=== PATIENT | female | born 1960 | race Caucasian/White ===

== ENCOUNTER 2017-03-04 14:16 | Emergency (ER) | payer SELFPAY ==
--- NOTE | 2017-03-04 14:29 | PDOC ---
History of Present Illness <Jeison oCy - Last Filed: 03/04/17 14:29> - General History Source: Patient Exam Limitations: No Limitations - History of Present Illness Initial Comments: 03/04/17 15:17 The patient is a 56-year-old female with a significant past medical history of left renal cancer (diagnosed Feb 2016), and presents to the emergency department with abdominal pain and vomiting since 4am today. She reports she is s/p left radical nephrectomy for the CA but the CA has relapsed in the same region. She reports the pain is located in the right upper quadrant, and she vomited non-bloody fluid that she describes as liquidy and slightly green in appearance. She reports associated nausea, chills, and sweating. She states she took a shower after symptoms started and experienced an episode of presyncope when her vision was lost temporarily. She denies LOC, and states her vision is back to baseline upon interview. Patient is Urdu-speaking. The patient denies chest pain, shortness of breath, headache and dizziness. The patient denies fever, chills, diarrhea and constipation. The patient denies dysuria, frequency, urgency and hematuria. Allergies: NSAIDs Past Surgical History: left radical nephrectomy for CA, hysterectomy Social History: No toxic habits reported PCP: Dr. Beatrice Wilson Oncologist: Dr. Membreno <Cynthia Lynn - Last Filed: 03/04/17 17:39> <Roxanna Paul - Last Filed: 03/04/17 23:05> - General Chief Complaint: Nausea/Vomiting Stated Complaint: VOMITING Time Seen by Provider: 03/04/17 14:29 Past History <Jeison Coy - Last Filed: 03/04/17 14:29> <Cynthia Lynn - Last Filed: 03/04/17 17:39> <Roxanna Paul - Last Filed: 03/04/17 23:05> - Past Medical History Allergies/Adverse Reactions: Allergies Allergy/AdvReac Type Severity Reaction Status Date / Time NSAIDS (Non-Steroidal Allergy Severe tachycardia Verified 03/04/17 14:29 Anti-Inflamma Home Medications: Ambulatory Orders Lisinopril [Prinivil] 20 mg PO DAILY 03/04/17 Metformin HCl [Metformin HCl ER] 500 mg PO DAILY 03/04/17 Methimazole [Tapazole -] 10 mg PO DAILY 03/04/17 Review of Systems - Review of Systems Able to Perform ROS?: Yes Comments:: 03/04/17 15:17 GENERAL/CONSTITUTIONAL: (+) Diaphoresis. (+) chills. No fever. No weakness. HEAD, EYES, EARS, NOSE AND THROAT: No change in vision. No ear pain or discharge. No sore throat. CARDIOVASCULAR: No chest pain or shortness of breath. RESPIRATORY: No cough, wheezing, or hemoptysis. GASTROINTESTINAL: (+) abdominal pain, (+) nausea, (+) vomiting. No diarrhea or constipation. GENITOURINARY: No dysuria, frequency, or change in urination. MUSCULOSKELETAL: No joint or muscle swelling or pain. No neck or back pain. SKIN: No rash NEUROLOGIC: No headache, vertigo, loss of consciousness, or change in strength/ sensation. ENDOCRINE: No increased thirst. No abnormal weight change. HEMATOLOGIC/LYMPHATIC: No anemia, easy bleeding, or history of blood clots. ALLERGIC/IMMUNOLOGIC: No hives or skin allergy. <Cynthia Lynn - Last Filed: 03/04/17 17:39> *Physical Exam - Vital Signs Last Vital Signs Temp Pulse Resp BP Pulse Ox 97.8 F 88 20 119/83 99 03/04/17 14:20 03/04/17 14:20 03/04/17 14:20 03/04/17 14:20 03/04/17 14:20 - Physical Exam Comments: 03/04/17 15:18 GENERAL: Awake, alert, and fully oriented, in no acute distress HEAD: No signs of trauma EYES: PERRLA, EOMI, sclera anicteric, conjunctiva clear ENT: Auricles normal inspection, hearing grossly normal, nares patent, oropharynx clear without exudates. Moist mucosa NECK: Normal ROM, supple, no lymphadenopathy, JVD, or masses LUNGS: Breath sounds equal, clear to auscultation bilaterally. No wheezes, and no crackles HEART: Regular rate and rhythm, normal S1 and S2, no murmurs, rubs or gallops ABDOMEN: Soft, nontender, normoactive bowel sounds. No guarding, no rebound. No masses EXTREMITIES: Normal range of motion, no edema. No clubbing or cyanosis. No cords, erythema, or tenderness NEUROLOGICAL: Cranial nerves II through XII grossly intact. Normal speech, normal gait SKIN: Warm, Dry, normal turgor, no rashes or lesions noted. <Cynthia Lynn - Last Filed: 03/04/17 17:39> - Vital Signs Last Vital Signs Temp Pulse Resp BP Pulse Ox 97.8 F 78 18 126/74 96 03/04/17 14:20 03/04/17 19:54 03/04/17 19:54 03/04/17 19:54 03/04/17 19:54 <PaulRoxanna - Last Filed: 03/04/17 23:05> ED Treatment Course - LABORATORY CBC & Chemistry Diagram: 03/04/17 15:00 03/04/17 15:00 - ADDITIONAL ORDERS Additional order review: 03/04/17 15:00 RBC 4.72 MCV 76.2 L MCHC 32.3 RDW 17.0 H MPV 8.4 Neutrophils % 85.8 H Lymphocytes % 9.6 Monocytes % 4.1 Eosinophils % 0.3 Basophils % 0.2 - RADIOLOGY Radiograph Interpretation: 03/04/17 16:43 GALLBLADDER US IMPRESSION: Small right renal cyst Reported by: Dr. Gutierrez Reyez Reviewed by: Dr. Jeison Coy 03/04/17 17:39 CXR PORTABLE IMPRESSION: Cardiac silhouette is upper limits of normal in size. Reported by: Dr. Madonna Morris Reviewed: Dr. Jeison Coy <Emily Lynnnda - Last Filed: 03/04/17 17:39> - LABORATORY CBC & Chemistry Diagram: 03/04/17 15:00 03/04/17 15:00 - ADDITIONAL ORDERS Additional order review: Laboratory Results 03/04/17 03/04/17 03/04/17 19:19 15:00 15:00 INR 1.02 Sodium 138 Potassium 4.4 Chloride 105 Carbon Dioxide 24 Anion Gap 9 BUN 23 H Creatinine 1.2 H Creat Clearance w eGFR 46.14 Random Glucose 124 H Calcium 8.4 L Total Bilirubin 0.3 AST 13 L ALT 25 Alkaline Phosphatase 147 H Creatine Kinase 58 Troponin I < 0.02 Total Protein 6.8 Albumin 3.2 L Lipase 192 Urine Color Yellow Urine Appearance Cloudy Urine pH 5.0 Urine Protein 1+ H Urine Glucose (UA) Negative Urine Ketones Trace H Urine Blood Negative Urine Nitrite Negative Urine Bilirubin Negative Urine Urobilinogen Negative Ur Leukocyte Esterase Negative Urine RBC 1 Urine WBC 10 Ur Epithelial Cells Few Urine Bacteria Many Hyaline Casts 8 Urine Mucus Many 03/04/17 15:00 RBC 4.72 MCV 76.2 L MCHC 32.3 RDW 17.0 H MPV 8.4 Neutrophils % 85.8 H Lymphocytes % 9.6 Monocytes % 4.1 Eosinophils % 0.3 Basophils % 0.2 - Medications Given in the ED: ED Medications Discontinued Medications Generic Name Dose Route Start Last Admin Trade Name Brittany PRN Reason Stop Dose Admin Diphenhydramine HCl 25 mg 03/04/17 20:01 03/04/17 20:01 Benadryl Injection - IVPUSH 03/04/17 20:02 25 mg NOW ONE Administration Sodium Chloride 2,000 mls @ 1,000 mls/hr 03/04/17 16:37 03/04/17 16:39 Normal Saline - IV 03/04/17 18:36 1,000 mls/hr ASDIR STA Administration <Roxanna Paul - Last Filed: 03/04/17 23:05> Medical Decision Making - Medical Decision Making 03/04/17 22:55 Patient Name: MEJIA THIS IS A PRELIMINARY REPORT FROM [facility] EXAM: CT abdomen pelvis with contrast IMAGES: [id number] EXAM DATE AND TIME: 2017-03-04 20:34:02 REASON FOR EXAM: Abdomen pain, solitary kidney. Prior left nephrectomy for kidney cancer. COMPARISON: None. FINDINGS Moderate ascites, simple density. . Mild diffuse thickening of distal stomach and in scattered regions of small bowel, possibly gastroenteritis. Mild diffuse edema of the bowel mesentery. No pneumatosis. No free air. . Appendix not visualized. Nonobstructive bowel gas pattern. . Liver gallbladder pancreas spleen and adrenals unremarkable. Post surgical changes from prior left nephrectomy. . No AAA. . Multiple small masses of right kidney, some indeterminate since density exceeds that of simple cysts. Comparison to old studies would be helpful and follow-up outpatient pre-/post contrast study for better characterization advised. . No fracture, lytic or blastic osseous lesion. THIS DOCUMENT HAS BEEN ELECTRONICALLY SIGNED <Roxanna Paul - Last Filed: 03/04/17 23:05> *DC/Admit/Observation/Transfer - Attestations Physician Attestion: 03/04/17 14:29 I, Dr. Jeison Coy, attest that this document has been prepared under my direction and personally reviewed by me in its entirety. I further attest, that it accurately reflects all work, treatment, procedures and medical decision -making performed by me. <Jeison Coy - Last Filed: 03/04/17 14:29> - Attestations Scribe Attestion: 03/04/17 15:18 Documentation prepared by Cynthia Lynn, acting as medical office manager for Jeison Coy DO. <Cynthia Lynn - Last Filed: 03/04/17 17:39> - Discharge Dispostion Admit: No <Roxanna Paul - Last Filed: 03/04/17 23:05> Diagnosis at time of Disposition: Food poisoning - Discharge Dispostion Disposition: HOME Condition at time of disposition: Improved - Referrals Referrals: Beatrice Wilson NP [Primary Care Provider] - - Patient Instructions Printed Discharge Instructions: Food Poisoning, DI for Dehydration -- Adult
[2017-03-04 14:32] VITALS: TEMP 97.8; BMI 30.1
[2017-03-04] MEDS ORDERED: ONDANSETRON 4 MG/2 ML VIAL ONE (14:34)
[2017-03-04 15:10] LABS: BASOPHIL 0.2 % (0-2.0); EOSINOPHIL 0.3 % (0-4.5); MCH 24.6 pg (25.7-33.7); MCHC 32.3 g/dl (32.0-36.0); MEAN CELL VOLUME 76.2 fl (80-96); MEAN PLT VOLUME 8.4 fl (7.5-11.1); NEUTROPHILS 85.8 % (42.8-82.8); PLATELET COUNT 337 K/MM3 (134-434); WHITE BLOOD COUNT 15.6 K/mm3 (4.0-10.0)
[2017-03-04 15:22] LABS: INR 1.02 (0.82-1.09); PROTHROMBIN TIME (PATIENT) 11.2 SEC (9.98-11.88)
[2017-03-04 15:35] LABS: ALBUMIN 3.2 g/dl (3.4-5.0); ANION GAP 9 (8-16); CALCIUM 8.4 mg/dL (8.5-10.1); CO2 24 mmol/L (21-32); GLUCOSE,RANDOM 124 mg/dL (74-106)
[2017-03-04 15:38] LABS: BILIRUBIN,TOTAL 0.3 mg/dL (0.2-1.0); CREATININE 1.2 mg/dL (0.55-1.02); SGOT/AST 13 U/L (15-37); SGPT/ALT 25 U/L (12-78); TOT PROT 6.8 g/dl (6.4-8.2)
[2017-03-04 15:41] LABS: ALK PHOS 147 U/L (45-117); CPK 58 IU/L (26-192); TROPONIN I < 0.02 ng/ml (0.00-0.05)
[2017-03-04] MEDS ORDERED: SODIUM CHLORIDE 2,000 ML IV STA (16:37)
[2017-03-04 19:23] LABS: URINE APPEARANCE CLOUDY; URINE BILIRUBIN NEGATIVE (NEGATIVE); URINE BLOOD NEGATIVE (NEGATIVE); URINE COLOR YELLOW; URINE GLUCOSE (UA) NEGATIVE (NEGATIVE); URINE KETONE TRACE (NEGATIVE); URINE LEUK ESTERASE NEGATIVE (NEGATIVE); URINE NITRITE NEGATIVE (NEGATIVE); URINE UROBILINOGEN NEGATIVE mg/dL (0.2-1.0)
[2017-03-04 19:25] LABS: URINE PROTEIN 1+ (NEGATIVE)
[2017-03-04 19:28] LABS: URINE BACTERIA MANY /hpf (NONE SEEN); URINE HYALINE CAST 8 /lpf; URINE MUCUS MANY; URINE RBC 1 /hpf (0-3); URINE WBC 10 /hpf (3-5)
[2017-03-04 22:16] VITALS: BP 126/74; PULSE 78
--- NOTE | 2017-03-05 21:47 | EKG ---
Test Reason : Blood Pressure : / mmHG Vent. Rate : 090 BPM Atrial Rate : 090 BPM P-R Int : 146 ms QRS Dur : 070 ms QT Int : 352 ms P-R-T Axes : 022 013 022 degrees QTc Int : 430 ms NORMAL SINUS RHYTHM NORMAL ECG NO PREVIOUS ECGS AVAILABLE Confirmed by DIANNE AMAYA MD ([id number]) on 03/05/2017 9:47:23 PM Referred By: Confirmed By:DIANNE AMAYA MD
== END 2017-03-04 23:20 | disposition home or self-care (01) ==
LOC: JER 14:16
PROC: 3E0233Z Introduction of Anti-inflammatory into Muscle, Percutaneous Approach (ICD-10-PCS; principal; 2017-03-04)
PROC: 3E0337Z Introduction of Electrolytic and Water Balance Substance into Peripheral Vein, Percutaneous Approach (ICD-10-PCS; 2017-03-04)
PROC: 3E033GC Introduction of Other Therapeutic Substance into Peripheral Vein, Percutaneous Approach (ICD-10-PCS; 2017-03-04)
DX: T62.8X1A Toxic effect of other specified noxious substances eaten as food, accidental (unintentional), initial encounter (principal); Y92.89 Other specified places as the place of occurrence of the external cause
CPT/HCPCS: 36415; 71010-TC; 74177-TC; 76705-TC; 80053; 81003; 81015; 83690; 84484; 85025; 85610; 87086; 93005; 93010; 99283-25

== ENCOUNTER 2017-03-05 17:29 | Emergency (ER) | payer SELFPAY ==
[2017-03-05 17:36] VITALS: BP 122/80; PULSE 107; TEMP 99.3; BMI 30.1
--- NOTE | 2017-03-05 18:43 | PDOC ---
History of Present Illness - General Chief Complaint: Rash Stated Complaint: ALLERGIC REACTION Time Seen by Provider: 03/05/17 18:24 History Source: Patient Exam Limitations: No Limitations - History of Present Illness Initial Comments: 03/05/17 18:45 56 yr female seen in ER yesterday for abd pain nvd was given zofran and benadryl , IVF and felt better however pt noticed a rash starting on her arms before leaving ER yesterday. Pt received benadryl IV and the rash improved. Pt states rash returned and is worse today, had 25mg benadryl at 2pm. no vomiting, 2 episodes of loose stool today. no fever or chills no shortness of breath or diff speaking. no change in soaps or detergents . Past History - Past Medical History Allergies/Adverse Reactions: Allergies Allergy/AdvReac Type Severity Reaction Status Date / Time NSAIDS (Non-Steroidal Allergy Severe tachycardia Verified 03/05/17 17:36 Anti-Inflamma Home Medications: Ambulatory Orders Lisinopril [Prinivil] 20 mg PO DAILY 03/04/17 Metformin HCl [Metformin HCl ER] 500 mg PO DAILY 03/04/17 Methimazole [Tapazole -] 10 mg PO DAILY 03/04/17 Levocetirizine Dihydrochloride 5 mg PO DAILY #10 tablet 03/05/17 Prednisone [Deltasone -] 40 mg PO UTDICT #8 tablet 03/05/17 Cancer: Yes (kidney) Diabetes: Yes HTN: Yes Seizures: Yes - Immunization History Immunization Up to Date: Yes - Psycho/Social/Smoking Cessation Hx Suicidal Ideation: No Smoking History: Never smoked Information on smoking cessation initiated: No Hx Alcohol Use: No Drug/Substance Use Hx: No *Physical Exam - Vital Signs Last Vital Signs Temp Pulse Resp BP Pulse Ox 99.3 F 107 H 18 122/80 100 03/05/17 17:33 03/05/17 17:33 03/05/17 17:33 03/05/17 17:33 03/05/17 17:33 - Physical Exam General Appearance: Yes: Nourished HEENT: positive: EOMI, DENYS, Normal ENT Inspection, TMs Normal, Pharynx Normal Neck: positive: Supple. negative: Tender Respiratory/Chest: positive: Lungs Clear, Normal Breath Sounds Cardiovascular: positive: Regular Rhythm, Regular Rate Gastrointestinal/Abdominal: positive: Normal Bowel Sounds, Soft Musculoskeletal: positive: Normal Inspection Extremity: positive: Normal Capillary Refill, Normal Inspection, Normal Range of Motion Integumentary: positive: Normal Color, Dry, Warm, Rash (hives to arms, legs, back neck , chest) Neurologic: positive: Fully Oriented, Alert, Normal Mood/Affect, Normal Response , Motor Strength 5/5 Medical Decision Making - Medical Decision Making 03/05/17 18:54 cc: rash itchy since yesterday no sob or throat swelling no diff breathing will give decadron, prednisone, levocetirizine strict blood sugar monitoring at home, daughter agrees and will monitor as pt is given steroids pt will follow with her doctor tomorrow for a follow up appointment *DC/Admit/Observation/Transfer Diagnosis at time of Disposition: Hives - Discharge Dispostion Disposition: HOME Condition at time of disposition: Good - Prescriptions Prescriptions: Prednisone [Deltasone -] 40 mg PO UTDICT #8 tablet Levocetirizine Dihydrochloride 5 mg PO DAILY #10 tablet - Referrals Referrals: Beatrice Wilson NP [Primary Care Provider] - - Patient Instructions Additional Instructions: cool water to bathe take the medication as prescribed, take the antihistamine Levoceterizine once a day (for itching) DO NOT NEED TO TAKE BENADRYL . take tonight before bed take prednisone as directed tomorrow morning follow with your doctor tomorrow for follow up Return to ER if worse it may take a few days for the rash to resolve
[2017-03-05] MEDS ORDERED: DEXAMETHASONE SOD PHOSPHATE 4 MG/1 ML VIAL IM ONE (18:44)
[2017-03-05] MEDS ORDERED: DEXAMETHASONE SOD PHOSPHATE 4 MG/1 ML VIAL ONE (18:46)
== END 2017-03-05 19:03 | disposition home or self-care (01) ==
LOC: JERFT 17:29
PROC: 3E0233Z Introduction of Anti-inflammatory into Muscle, Percutaneous Approach (ICD-10-PCS; principal; 2017-03-05)
DX: L50.9 Urticaria, unspecified (principal); I10 Essential (primary) hypertension; E11.9 Type 2 diabetes mellitus without complications; Z79.84 Long term (current) use of oral hypoglycemic drugs; G40.909 Epilepsy, unspecified, not intractable, without status epilepticus; Z85.528 Personal history of other malignant neoplasm of kidney; Z90.5 Acquired absence of kidney
CPT/HCPCS: 99281-25

== ENCOUNTER 2017-03-07 09:38 | Emergency (ER) | payer SELFPAY ==
[2017-03-07 09:43] VITALS: BMI 30.1
[2017-03-07] MEDS ORDERED: FAMOTIDINE 20 MG/50 ML IVPB 50 ML IVPB ONE ×2 (10:30→10:39)
[2017-03-07] MEDS ORDERED: methylPREDNISolone NA SUCC 125 MG/2 ML VIAL IVPB ONE (10:30)
[2017-03-07] MEDS ORDERED: EPINEPHrine 1:1,000 0.3 MG/0.3 ML SYR IM ONE (10:32)
[2017-03-07] MEDS ORDERED: methylPREDNISolone NA SUCC 125 MG/2 ML VIAL ONE (10:39)
[2017-03-07] MEDS ORDERED: EPINEPHrine/PF 1 MG/1 ML (1:1,000) AMPULE ONE (10:39)
[2017-03-07 11:04] LABS: BASOPHIL 0.2 % (0-2.0); EOSINOPHIL 0.8 % (0-4.5); MCH 24.9 pg (25.7-33.7); MCHC 32.8 g/dl (32.0-36.0); MEAN PLT VOLUME 7.7 fl (7.5-11.1); NEUTROPHILS 70.3 % (42.8-82.8); PLATELET COUNT 302 K/MM3 (134-434); RDW 16.7 % (11.6-15.6); WHITE BLOOD COUNT 10.4 K/mm3 (4.0-10.0)
--- NOTE | 2017-03-07 11:10 | PDOC ---
History of Present Illness <Marlyn Troy - Last Filed: 03/07/17 14:05> - History of Present Illness Initial Comments: 03/07/17 11:08 "The patient is a 56 year old female, with a significant past medical history of , HTN, kidney cancer, who presents to the emergency department with rash and facial swelling. Patient was seen here at [facility] 3 days ago (Sunday) for abdominal pain due to presumed food poisoning. She received IV medications and had a CT with IV contrast. During her stay in the ER that day, pt began to develop hives and itching. She was given benadryl with some improvement in her symptoms. Patient came back the next day (Sunday) because she noticed a recurrence of the rash. She states the rash was all over her body, especially her chest, abdomen and arms. She was started on cetirizine and prednisone, with initial improvement in her symptoms. However, last night at 4AM, pt reports the rash returned, and she began to notice swelling around her lips and eyes. She denies tongue swelling. Denies SOB. Denies voice changes. Denies difficulty swallowing. Denies any new detergents/soaps/foods/clothing/meds. Pt is currently on lisinopril. Allergies: NSAIDS Past surgical history: None reported. Kidney cancer removal Social history: Nonsmoker. Denies EtOH use and recreational drug use. Primary Care Physician: Beatrice Wilson M.D. <Shant Sebastian - Last Filed: 03/07/17 16:25> - General Chief Complaint: Edema Stated Complaint: ALLERGIC RXN/ THROAT PAIN, SWOLLEN LIPS Time Seen by Provider: 03/07/17 09:54 Past History <Marlyn Troy - Last Filed: 03/07/17 14:05> - Past Medical History Cancer: Yes (kidney) Diabetes: Yes HTN: Yes Seizures: Yes - Immunization History Immunization Up to Date: Yes - Psycho/Social/Smoking Cessation Hx Anxiety: No Suicidal Ideation: No Smoking History: Never smoked Hx Alcohol Use: No Drug/Substance Use Hx: No Substance Use Type: None <Shant Sebastian - Last Filed: 03/07/17 16:25> - Past Medical History Allergies/Adverse Reactions: Allergies Allergy/AdvReac Type Severity Reaction Status Date / Time NSAIDS (Non-Steroidal Allergy Severe tachycardia Verified 03/07/17 09:42 Anti-Inflamma Home Medications: Ambulatory Orders Lisinopril [Prinivil] 20 mg PO DAILY 03/04/17 Metformin HCl [Metformin HCl ER] 500 mg PO DAILY 03/04/17 Methimazole [Tapazole -] 10 mg PO DAILY 03/04/17 Levocetirizine Dihydrochloride 5 mg PO DAILY #10 tablet 03/05/17 Prednisone [Deltasone -] 40 mg PO UTDICT #8 tablet 03/05/17 Diphenhydramine HCl [Benadryl -] 25 mg PO Q6H PRN #30 capsule 03/07/17 Epinephrine [Epipen] 0.3 mg IJ ONCE PRN #1 auto.injct 03/07/17 Review of Systems - Review of Systems Comments:: 03/07/17 11:22 "GENERAL/CONSTITUTIONAL: No fever or chills. No weakness. HEAD, EYES, EARS, NOSE AND THROAT: +lip and eye swelling, No change in vision. No ear pain or discharge. No sore throat. CARDIOVASCULAR: No chest pain or shortness of breath. RESPIRATORY: No cough, wheezing, or hemoptysis. GASTROINTESTINAL: No nausea, vomiting, diarrhea or constipation. GENITOURINARY: No dysuria, frequency, or change in urination. MUSCULOSKELETAL: No joint or muscle swelling or pain. No neck or back pain. SKIN: +rash NEUROLOGIC: No headache, vertigo, loss of consciousness, or change in strength/ sensation. ENDOCRINE: No increased thirst. No abnormal weight change. HEMATOLOGIC/LYMPHATIC: No anemia, easy bleeding, or history of blood clots. ALLERGIC/IMMUNOLOGIC: No hives or skin allergy. " <Shant Sebastian - Last Filed: 03/07/17 16:25> *Physical Exam - Vital Signs Last Vital Signs Temp Pulse Resp BP Pulse Ox 98.7 F 94 H 20 144/94 100 03/07/17 09:39 03/07/17 09:39 03/07/17 09:39 03/07/17 09:39 03/07/17 09:39 <Marlyn Troy - Last Filed: 03/07/17 14:05> - Vital Signs Last Vital Signs Temp Pulse Resp BP Pulse Ox 98.7 F 94 H 20 144/94 100 03/07/17 09:39 03/07/17 09:39 09/13/17 09:39 03/07/17 09:39 03/07/17 09:39 - Physical Exam Comments: 03/07/17 11:23 "GENERAL: Awake, alert, and fully oriented, in no acute distress HEAD: No signs of trauma EYES: PERRLA, EOMI, sclera anicteric, conjunctiva clear ENT: Auricles normal inspection, hearing grossly normal, nares patent, oropharynx clear without exudates. Moist mucosa NECK: Normal ROM, supple, no lymphadenopathy, JVD, or masses LUNGS: Breath sounds equal, clear to auscultation bilaterally. No wheezes, and no crackles HEART: Regular rate and rhythm, normal S1 and S2, no murmurs, rubs or gallops ABDOMEN: Soft, nontender, normoactive bowel sounds. No guarding, no rebound. No masses EXTREMITIES: Normal range of motion, no edema. No clubbing or cyanosis. No cords, erythema, or tenderness NEUROLOGICAL: Cranial nerves II through XII grossly intact. Normal speech, normal gait SKIN: urticarial rash to arms, legs, chest, back, and neck. + periorbital edema and + upper and lower lip edema. No tongue swelling. No uvula swelling. No hoarseness. No stridor. " <Shant Sebastian - Last Filed: 03/07/17 16:25> Heart Score/ECG Review - ECG Impressions Comment:: 03/07/17 14:06 NORMAL SINUS RHYTHM NORMAL ECG WHEN COMPARED WITH ECG OF 04-MAR-2017 15:45, NO SIGNIFICANT CHANGE WAS FOUND <Marlyn Troy - Last Filed: 03/07/17 14:05> ED Treatment Course - LABORATORY CBC & Chemistry Diagram: 03/07/17 10:45 03/07/17 10:45 - ADDITIONAL ORDERS Additional order review: 03/07/17 10:45 RBC 3.68 D MCV 76.0 L MCHC 32.8 RDW 16.7 H MPV 7.7 Neutrophils % 70.3 Lymphocytes % 23.6 D Monocytes % 5.1 Eosinophils % 0.8 D Basophils % 0.2 - Medications Given in the ED: ED Medications Discontinued Medications Generic Name Dose Route Start Last Admin Trade Name Freq PRN Reason Stop Dose Admin Diphenhydramine HCl 50 mg 03/07/17 10:30 03/07/17 10:40 Benadryl Injection - IVPUSH 03/07/17 10:31 50 mg ONCE ONE Administration Epinephrine HCl 0.3 mg 03/07/17 10:32 03/07/17 10:40 Epipen 0.3mg - IM 03/07/17 10:33 0.3 mg ONCE ONE Administration Famotidine/Sodium Chloride 50 mls @ 100 mls/hr 03/07/17 10:30 03/07/17 10:40 Pepcid 20 Mg Premixed Ivpb - IVPB 03/07/17 10:59 100 mls/hr ONCE ONE Administration Methylprednisolone Sodium Succinate 125 mg 03/07/17 10:30 03/07/17 10:40 Solu-Medrol - IVPB 03/07/17 10:31 125 mg ONCE ONE Administration <Marlyn Troy - Last Filed: 03/07/17 14:05> - LABORATORY CBC & Chemistry Diagram: 03/07/17 10:45 03/07/17 10:45 - Medications Given in the ED: ED Medications Discontinued Medications Generic Name Dose Route Start Last Admin Trade Name Brittany PRN Reason Stop Dose Admin Diphenhydramine HCl 50 mg 03/07/17 10:30 03/07/17 10:40 Benadryl Injection - IVPUSH 03/07/17 10:31 50 mg ONCE ONE Administration Epinephrine HCl 0.3 mg 03/07/17 10:32 03/07/17 10:40 Epipen 0.3mg - IM 03/07/17 10:33 0.3 mg ONCE ONE Administration Famotidine/Sodium Chloride 50 mls @ 100 mls/hr 03/07/17 10:30 03/07/17 10:40 Pepcid 20 Mg Premixed Ivpb - IVPB 03/07/17 10:59 100 mls/hr ONCE ONE Administration Methylprednisolone Sodium Succinate 125 mg 03/07/17 10:30 03/07/17 10:40 Solu-Medrol - IVPB 03/07/17 10:31 125 mg ONCE ONE Administration <Shant Sebastian - Last Filed: 03/07/17 16:25> Medical Decision Making - Medical Decision Making 03/07/17 11:24 56 F with likely allergic reaction. Unclear trigger. Pt with urticarial rash and facial swelling. No evidence of airway obstruction at this time. No stridor , no tongue swelling. Pt breathing comfortably. Also consider ACEI angioedema as pt is on lisinopril. However, this is less likely as pt has concomitant rash , suggesting allergic reaction. - Labs - IV benadryl, pepcid, solumedrol, IM epi - Reassess 03/07/17 16:24 Pt reassessed - now with complete resolution of lip swelling and eye swelling. Urticaria significantly improved but not completely resolved. Pt with no respiratory symptoms, no voice changes, no tongue swelling, no evidence of airway compromise. Pt observed in ER for 6 hours with no recurrence of allergic reaction symptoms. Clinically stable for DC. <Shant Sebastian - Last Filed: 03/07/17 16:25> *DC/Admit/Observation/Transfer - Attestations Scribe Attestion: 03/07/17 11:40 Documentation prepared by Marlyn Troy, acting as claim review medical director for Shant Sebastian MD. <Mralyn Troy - Last Filed: 03/07/17 14:05> - Attestations Physician Attestion: 03/07/17 16:24 I, Dr. Shant Sebastian MD, attest that this document has been prepared under my direction and personally reviewed by me in its entirety. I further attest, that it accurately reflects all work, treatment, procedures and medical decision -making performed by me. <Shant Sebastian - Last Filed: 03/07/17 16:25> Diagnosis at time of Disposition: Allergic reaction - Discharge Dispostion Disposition: HOME Condition at time of disposition: Good - Prescriptions Prescriptions: Diphenhydramine HCl [Benadryl -] 25 mg PO Q6H PRN #30 capsule PRN Reason: For Itching Epinephrine [Epipen] 0.3 mg IJ ONCE PRN #1 auto.injct PRN Reason: Short Of Breath/Wheezing - Referrals Referrals: Beatrice Wilson NP [Primary Care Provider] - David Gloria MD [Staff Physician] - - Patient Instructions Printed Discharge Instructions: DI for General Allergic Reactions Additional Instructions: Please follow up with your primary doctor tomorrow as scheduled. Be sure to make an appointment with an solution developer. If you would like, you can call the number provided to make an appointment with our allergy clinic. Keep the Epi-Pen on you at all times. If you begin to have swelling of your mouth or throat or experience shortness of breath, use the Epi-pen and call 911 immediately. Take benadryl every 6 hours as needed for itching. Continue taking the prednisone daily. Print Language: INDIAN
[2017-03-07 12:38] LABS: ALBUMIN 3.5 g/dl (3.4-5.0); ALK PHOS 118 U/L (45-117); ANION GAP 10 (8-16); BILIRUBIN,TOTAL 0.3 mg/dL (0.2-1.0); CALCIUM 8.5 mg/dL (8.5-10.1); CO2 27 mmol/L (21-32); CREATININE 1.2 mg/dL (0.55-1.02); GLUCOSE,RANDOM 101 mg/dL (74-106); SGOT/AST 18 U/L (15-37); SGPT/ALT 21 U/L (12-78); TOT PROT 6.8 g/dl (6.4-8.2)
[2017-03-07] MEDS ORDERED: ACETAMINOPHEN 1000 MG/100 ML VIAL (NON FORMULARY) IVPB ONE (16:10)
[2017-03-07] MEDS ORDERED: ACETAMINOPHEN INJECTION 100 ML IVPB ONE (16:15)
[2017-03-07 17:34] VITALS: BP 120/64; PULSE 78; TEMP 98.2
--- NOTE | 2017-03-08 13:16 | EKG ---
Test Reason : Blood Pressure : / mmHG Vent. Rate : 095 BPM Atrial Rate : 095 BPM P-R Int : 142 ms QRS Dur : 076 ms QT Int : 354 ms P-R-T Axes : 021 007 013 degrees QTc Int : 444 ms NORMAL SINUS RHYTHM NORMAL ECG WHEN COMPARED WITH ECG OF 04-MAR-2017 15:45, NO SIGNIFICANT CHANGE WAS FOUND Confirmed by MAURICIO MITCHELL MD ([id number]) on 03/08/2017 1:16:42 PM Referred By: Confirmed By:MAURICIO MITCHELL MD
== END 2017-03-07 17:00 | disposition home or self-care (01) ==
LOC: JER 09:38
PROC: 3E033NZ Introduction of Analgesics, Hypnotics, Sedatives into Peripheral Vein, Percutaneous Approach (ICD-10-PCS; principal; 2017-03-07)
PROC: 3E033GC Introduction of Other Therapeutic Substance into Peripheral Vein, Percutaneous Approach (ICD-10-PCS; 2017-03-07)
DX: L50.0 Allergic urticaria (principal); T78.40XA Allergy, unspecified, initial encounter
CPT/HCPCS: 36415; 80053; 85025; 93005; 93010; 99282-25

== ENCOUNTER 2017-03-26 17:54 | Emergency (ER) | payer OTHER ==
[2017-03-26 18:07] VITALS: BP 148/71; PULSE 81; TEMP 98.5; BMI 32.6
--- NOTE | 2017-03-26 19:32 | PDOC ---
Attending Attestation - Resident Resident Name: Jadon Green - ED Attending Attestation I have performed the following: I have examined & evaluated the patient, The case was reviewed & discussed with the resident, I agree w/resident's findings & plan, Exceptions are as noted - HPI HPI: 56 yo F history DM -presents with skin abscess, sent by Dr. Dunn for evaluation and I&D. She states she has had progressively worsening pain and swelling to R upper back, just below the base of the neck. Denies fever. No drainage. She has had a cyst there in the past, but never had anything drained in the past. - Physicial Exam PE: GENERAL: Awake, alert, and fully oriented, in no acute distress HEAD: No signs of trauma EYES: PERRLA, EOMI, sclera anicteric, conjunctiva clear ENT: Auricles normal inspection, hearing grossly normal, nares patent, oropharynx clear without exudates. Moist mucosa NECK: Normal ROM, supple, no lymphadenopathy, JVD, or masses LUNGS: Breath sounds equal, clear to auscultation bilaterally. No wheezes, and no crackles HEART: Regular rate and rhythm, normal S1 and S2, no murmurs, rubs or gallops ABDOMEN: Soft, nontender, normoactive bowel sounds. No guarding, no rebound. No masses EXTREMITIES: Normal range of motion, no edema. No clubbing or cyanosis. No cords, erythema, or tenderness NEUROLOGICAL: Cranial nerves II through XII grossly intact. Normal speech, normal gait SKIN: Warm, Dry, normal turgor, no rashes. +Area of swelling, tenderness, fluctuance to the R upper back at the base of the neck. No open lesions. + Erythema, slight induration at the outer margins. - Medical Decision Making I&D performed. Slight induration to peripheral areas at the 9 and 12 o'clock positions (lesion was circular). Will cover with PO abx. Packing placed. Return in 1-2 days for removal. Wound culture pending.
--- NOTE | 2017-03-26 19:44 | PDOC ---
History of Present Illness - General Chief Complaint: Abscess Boil Stated Complaint: PCP SENT/ABSCESS BOIL Time Seen by Provider: 03/26/17 19:16 History Source: Patient Exam Limitations: No Limitations - History of Present Illness Initial Comments: 03/26/17 19:36 56 y.o. F with pmh of HTN, DM, Kidney CA s/p left total nephrectomy, and hyperthyroidism presenting with an abscess on her right upper back. Patient states she began having this abscess 1 week ago, which gradually got larger and more erythematous. Patient also noted 9/10 pain that has been constant. She tried warm compresses which haven't helped. Patient saw her chief strategy officer, Dr. Velazquez who referred her to Dr. Dunn. Dr. Dunn sent her to the ED for I&D and IV abx. Patient endorses tactile fevers and chills. Patient denies N/V/D/C, chest pain, SOB, abdominal pain, Changes in urination and bowel sx. Patient had a similar episode 3 years prior. She saw a doctor at that time and received antibiotics with improvement. PSH- Left nephrectomy, Hysterectomy Allergies- NSAIDS, Contrast SH- denies alcohol, smoking, and drug use PCP- Dr. Wilson 03/26/17 20:26 Past History - Past Medical History Allergies/Adverse Reactions: Allergies Allergy/AdvReac Type Severity Reaction Status Date / Time NSAIDS (Non-Steroidal Allergy Severe tachycardia Verified 03/26/17 18:40 Anti-Inflamma Home Medications: Ambulatory Orders Lisinopril [Prinivil] 20 mg PO DAILY 03/04/17 Metformin HCl [Metformin HCl ER] 500 mg PO DAILY 03/04/17 Methimazole [Tapazole -] 10 mg PO DAILY 03/04/17 Epinephrine [Epipen] 0.3 mg IJ ONCE PRN #1 auto.injct 03/07/17 Cephalexin [Keflex] 500 mg PO Q6H #28 capsule 03/26/17 Sulfamethoxazole/Trimethoprim [Bactrim Ds -] 1 tab PO BID #14 tablet 03/26/17 Cancer: Yes (kidney) Diabetes: Yes HTN: Yes Seizures: Yes - Immunization History Immunization Up to Date: Yes - Suicide/Smoking/Psychosocial Hx Smoking History: Never smoked Have you smoked in the past 12 months: No Information on smoking cessation initiated: No Hx Alcohol Use: No Drug/Substance Use Hx: No Substance Use Type: None Review of Systems - Review of Systems Able to Perform ROS?: Yes Comments:: 03/26/17 19:46 GENERAL/CONSTITUTIONAL: + subjective fever & chills. No weakness. HEAD, EYES, EARS, NOSE AND THROAT: No change in vision. No ear pain or discharge. No sore throat. CARDIOVASCULAR: No chest pain or shortness of breath RESPIRATORY: No cough, wheezing, or hemoptysis. GASTROINTESTINAL: No nausea, vomiting, diarrhea or constipation. GENITOURINARY: No dysuria, frequency, or change in urination. MUSCULOSKELETAL: No joint or muscle swelling or pain. No neck or back pain. SKIN: +Right upper back abscess NEUROLOGIC: No headache, vertigo, loss of consciousness, or change in strength/ sensation. ENDOCRINE: No increased thirst. No abnormal weight change HEMATOLOGIC/LYMPHATIC: No anemia, easy bleeding, or history of blood clots. ALLERGIC/IMMUNOLOGIC: No hives or skin allergy. *Physical Exam - Vital Signs Last Vital Signs Temp Pulse Resp BP Pulse Ox 98.5 F 81 16 148/71 100 03/26/17 18:03 03/26/17 18:03 03/26/17 18:03 03/26/17 18:03 03/26/17 18:03 - Physical Exam Comments: 03/26/17 19:46 GENERAL: Awake, alert, and fully oriented, in no acute distress HEAD: No signs of trauma, normocephalic, atraumatic EYES: PERRLA, EOMI, sclera anicteric, conjunctiva clear ENT: Auricles normal inspection, hearing grossly normal, nares patent, oropharynx clear without exudates. Moist mucosa NECK: Normal ROM, supple, no lymphadenopathy, JVD, or masses LUNGS: No distress, speaks full sentences, clear to auscultation bilaterally HEART: Regular rate and rhythm, normal S1 and S2, no murmurs, rubs or gallops, peripheral pulses normal and equal bilaterally. ABDOMEN: Soft, nontender, normoactive bowel sounds. No guarding, no rebound. No masses EXTREMITIES: Normal inspection, Normal range of motion, no edema. No clubbing or cyanosis. NEUROLOGICAL: Cranial nerves II through XII grossly intact. Normal speech, normal gait, no focal sensorimotor deficits SKIN: Warm, Dry, normal turgor, no rashes or lesions noted. +4.5cm x 5 cm erythematous fluctuant abscess on right upper back Procedures - Incision and Drainage I&D Site: Right: Torso (Right upper back) Betadine cleansed: No (chloraprep) Anesthesia: 1% Lidocaine Volume(ml): 4 Blade Size: 11 Attempts: 1 Iodinated Packin/4 in Complications: none Dressing: Yes Progress: 03/26/17 20:30 Area cleaned with chloraprep. Area anasthetized with 1% Lidocaine. Abscess incised with 11 blade. Copious amount of blood and purulent discharge drained. Areas of induration at the margins. Will place patient on PO antibiotics outpatient. Patient tolerated the procedure well without complications. Standard post- procedure care explained to the patient. Medical Decision Making - Medical Decision Making 03/26/17 20:26 56 y.o. F with pmh of HTN, DM, Kidney CA s/p left total nephrectomy, and hyperthyroidism presenting with an abscess on her right upper back. Plan: I&D performed. Patient tolerated the procedure well. Patient will be d/c on PO abx and f/u tomorrow to remove iodinated packing. *DC/Admit/Observation/Transfer Diagnosis at time of Disposition: Abscess - Discharge Dispostion Disposition: HOME Condition at time of disposition: Stable - Prescriptions Prescriptions: Sulfamethoxazole/Trimethoprim [Bactrim Ds -] 1 tab PO BID #14 tablet Cephalexin [Keflex] 500 mg PO Q6H #28 capsule - Referrals Referrals: Beatrice Wilson NP [Primary Care Provider] - - Patient Instructions Printed Discharge Instructions: DI for Incision and Drainage of a Skin Abscess , DI for Skin Abscess Additional Instructions: regrese al servicio de urgencias en 24-48 horas para que se le megan un chequeo de la herida. Print Language: BURMESE
[2017-03-26] MEDS ORDERED: CEPHALEXIN MONOHYDRATE 500 MG CAPSULE (UD) PO ONE (20:19)
[2017-03-26] MEDS ORDERED: SULFAMETHOXAZOLE/TRIMETHOPRIM 800MG/160MG D.S. TABLET PO ONE (20:19)
[2017-03-26] MEDS ORDERED: CEPHALEXIN MONOHYDRATE 250 MG CAPSULE (FP) ONE (20:32)
[2017-03-26] MEDS ORDERED: SULFAMETHOXAZOLE/TRIMETHOPRIM 800MG/160MG D.S. TABLET ONE (20:32)
[2017-03-26] MEDS ORDERED: IBUPROFEN 600 MG TABLET (FP) PO ONE ×2 (20:33→20:35)
== END 2017-03-26 20:52 | disposition home or self-care (01) ==
LOC: JER 17:54
PROC: 0H96XZZ Drainage of Back Skin, External Approach (ICD-10-PCS; principal; 2017-03-26)
DX: L02.212 Cutaneous abscess of back [any part, except buttock and flank] (principal); I10 Essential (primary) hypertension; E11.9 Type 2 diabetes mellitus without complications; Z79.84 Long term (current) use of oral hypoglycemic drugs; E05.90 Thyrotoxicosis, unspecified without thyrotoxic crisis or storm; Z85.528 Personal history of other malignant neoplasm of kidney; Z90.5 Acquired absence of kidney
CPT/HCPCS: 10060; 87070; 87205; 99282-25

== ENCOUNTER 2017-03-27 16:05 | Emergency (ER) | payer OTHER ==
[2017-03-27 16:10] VITALS: BP 147/82; PULSE 86; TEMP 97.9; BMI 32.6
--- NOTE | 2017-03-27 17:12 | PDOC ---
Suture Removal/Wound Check HPI - History of Present Illness Chief Complaint: Revisit,Wound Recheck Stated Complaint: REVISIT Time Seen by Provider: 03/27/17 16:23 History Source: Yes: Patient Exam Limitations: Yes: No Limitations Treated at: [facility] Date of Last ED visit: 03/26/17 - Previous ED Treatment Type of procedure performed on last visit: Yes: I&D of Abscess Antibiotics Prescribed: Yes - Onset of Previous Treatment Comment:: 03/27/17 17:07 CHIEF COMPLAINT: wound check HISTORY OF PRESENT ILLNESS: 56 yo F with hx of HTN, DM, presents to fast track for wound check of I&D performed yesterday. Patient states packing came out yesterday when they tried to change the external dressing. Patient states she is taking antibiotics and the wound does feel better and is improving from yesterday. Denies fever, chills, nausea, vomiting, diarrhea. No recent travel or sick contacts. PAST MEDICAL HISTORY: Denies past medical history FAMILY HISTORY: Denies SOCIAL HISTORY: Denies tobacco, alcohol, illicit drug use. SURGICAL HISTORY: Denies ALLERGIES: NSAIDS REVIEW OF SYSTEMS General/Constitutional: Denies fever or chills. Denies weakness, weight change. HEENT: Denies change in vision. Denies ear pain or discharge. Denies sore throat. Cardiovascular: Denies chest pain or shortness of breath. Respiratory: Denies cough, wheezing, or hemoptysis. Gastrointestinal: Denies nausea, vomiting, diarrhea or constipation. Denies rectal bleeding. Genitourinary: Denies dysuria, frequency, or change in urination. Musculoskeletal: Denies joint or muscle swelling or pain. Denies neck or back pain. Skin and breasts: Painful abscess to R upper back, drained yesterday. PHYSICAL EXAM General Appearance: Well-appearing, appropriately dressed. No apparent distress , no intoxication. HEENT: EOMI, PERRLA, normal ENT inspection, normal voice, TMs normal, pharynx normal. No conjunctival pallor. No photophobia, scleral icterus. Neck: Supple. Trachea midline. No tenderness, rigidity, carotid bruit, stridor , lymphadenopathy, or thyromegaly. Respiratory/Chest: Lungs CTAB. No shortness of breath, chest tenderness, respiratory distress, accessory muscle use. No crackles, rales, rhonchi, stridor , wheezing, dullness Cardiovascular: RRR. S1, S2. No JVD, murmur, bradycardia, tachycardia. Vascular Pulses: Dorsalis-Pedis (R): 2+, Dorsalis-Pedis (L): 2+ Gastrointestinal/Abdominal: Normal bowel sounds. Abdomen soft, non-distended. No tenderness or rebound tenderness. No organomegaly, pulsatile mass, guarding , hernia, hepatomegaly, splenomegaly. Musculoskeletal/Extremities: Normal inspection. FROM of all extremities, normal capillary refill. Pelvis Stable. No CVA tenderness. No tenderness to extremities, pedal edema, swelling, erythema or deformity. Integumentary: Erythematous, fluctuant abscess with surrounding induration, approximately 4 cm in diameter with 0.75cm incision to R upper back with purulent drainage. Appropriate color, dry, warm. Neurologic: commissary worker II-XII intact. Fully oriented, alert. Appropriate mood/affect. Motor strength 5/5. No appreciable EOM palsy, facial droop or sensory deficit. Past History - Past Medical History Allergies/Adverse Reactions: Allergies Allergy/AdvReac Type Severity Reaction Status Date / Time NSAIDS (Non-Steroidal Allergy Severe tachycardia Verified 03/26/17 18:40 Anti-Inflamma IV contrast Allergy Uncoded 03/27/17 16:11 Home Medications: Ambulatory Orders Lisinopril [Prinivil] 20 mg PO DAILY 03/04/17 Metformin HCl [Metformin HCl ER] 500 mg PO DAILY 03/04/17 Methimazole [Tapazole -] 10 mg PO DAILY 03/04/17 Epinephrine [Epipen] 0.3 mg IJ ONCE PRN #1 auto.injct 03/07/17 Cephalexin [Keflex] 500 mg PO Q6H #28 capsule 03/26/17 Sulfamethoxazole/Trimethoprim [Bactrim Ds -] 1 tab PO BID #14 tablet 03/26/17 Cancer: Yes (kidney) Diabetes: Yes HTN: Yes Seizures: Yes - Immunization History Immunization Up to Date: Yes - Suicide/Smoking/Psychosocial Hx Smoking History: Never smoked Have you smoked in the past 12 months: No Information on smoking cessation initiated: No Hx Alcohol Use: No Drug/Substance Use Hx: No Substance Use Type: None Procedures - Consent Consent obtained: Verbal - Incision and Drainage I&D Site: Right: Torso (upper back) Betadine cleansed: Yes Anesthesia: 1% Lidocaine Volume(ml): 2 Blade Size: 11 Attempts: 1 Iodinated Packin/4 in (4-5 cm) Dressing: Yes (telfa, tegaderm) Medical Decision Making - Medical Decision Making 03/27/17 17:12 56 yo F with hx of HTN, DM, presents to fast track for wound check of I&D performed yesterday. Repeat I&D performed. (see procedure note). Large chunks of pus expressed, along with purulent drainage. Packed with 4-5 cm of iodorm packing, covered with telfa dressing and tegaderm. Advised patient to continue taking antibiotics as prescribed and of signs and symptoms for return to ER; patient verbalized understanding and agrees to plan. *DC/Admit/Observation/Transfer Diagnosis at time of Disposition: Abscess - Discharge Dispostion Disposition: HOME Condition at time of disposition: Stable Admit: No - Referrals Referrals: Beatrice Wilson, [facility] [Primary Care Provider] - - Patient Instructions Printed Discharge Instructions: DI for Incision and Drainage of a Skin Abscess Additional Instructions: Leave the dressing in place until tomorrow. Once the dressing is removed, it is okay to shower. Do not scrub or rub the incision site. Allow water to flow over the wound. Pat the area dry with a towel. Cover the wound with saline-dampened gauze. Cover the area with the non- stick gauze and tape. Repeat dressing changes twice daily until you remove the packing in two days. Complete the entire course of antibiotics as prescribed. If you develop fever, chills, vomiting, or the wound does not improve, or you develop any new or worsening symptoms, please return to the ER. Print Language: TAJIK
== END 2017-03-27 17:26 | disposition home or self-care (01) ==
LOC: JERFT 16:05
PROC: 0H96XZZ Drainage of Back Skin, External Approach (ICD-10-PCS; principal; 2017-03-27)
DX: L02.212 Cutaneous abscess of back [any part, except buttock and flank] (principal)
CPT/HCPCS: 10060; 99281-25

== ENCOUNTER 2019-05-14 20:01 | Observation (INO) | payer OTHER ==
[2019-05-14 20:06] VITALS: TEMP 98; BMI 34.0
--- NOTE | 2019-05-14 20:06 | PDOC ---
Rapid Medical Evaluation Time Seen by Provider: 05/14/19 20:04 Medical Evaluation: Allergies Allergy/AdvReac Type Severity Reaction Status Date / Time NSAIDS (Non-Steroidal Allergy Severe tachycardia Verified 03/26/17 18:40 Anti-Inflamma IV contrast Allergy Uncoded 03/27/17 16:11 05/14/19 20:04 Pt c/o: high bp x 2 days, dizziness and headache, taked lisinopril Pt on brief exam: no pedal edema, lcta, BP 186/95 Pt ordered for: labs, ekg, ua Pt to proceed to the Discharge Disposition - Diagnosis Hypertensive crisis - Discharge Dispostion Disposition: HOME Condition at time of disposition: Stable - Referrals - Patient Instructions - Post Discharge Activity
--- NOTE | 2019-05-14 20:23 | PDOC ---
Attending Attestation - Resident Resident Name: Lucie Rosales - ED Attending Attestation I have performed the following: I have examined & evaluated the patient, The case was reviewed & discussed with the resident, I agree w/resident's findings & plan - HPI HPI: 05/14/19 22:42 see resident hpi - Physicial Exam PE: 05/14/19 22:42 agree with resident exam - Medical Decision Making 05/14/19 22:42 58-year-old female with intermittent headache and dizziness as well as uncontrolled hypertension Patient remains symptomatic despite controlled blood pressure in the emergency department with residual dizziness and guarded gait Will admit for MRI in the morning
[2019-05-14 20:34] LABS: EOS % 2.6 % (0-4.5); HEMATOCRIT 37.1 % (32.4-45.2); HEMOGLOBIN 12.3 GM/dL (10.7-15.3); LYMPH % 31.4 % (8-40); MCH 27.8 pg (25.7-33.7); MCHC 33.2 g/dl (32.0-36.0); MEAN CELL VOLUME 83.7 fl (80-96); MONO % 6.1 % (3.8-10.2); NEUT % 58.9 % (42.8-82.8); PLATELET COUNT 253 K/MM3 (134-434); RBC 4.43 M/mm3 (3.60-5.2); RDW 24.3 % (11.6-15.6); WHITE BLOOD COUNT 9.1 K/mm3 (4.0-10.0)
[2019-05-14] MEDS ORDERED: ENALAPRILAT DIHYDRATE 1.25 MG/1 ML VIAL IVPB ONE (20:41)
[2019-05-14 20:47] LABS: HYALINE CASTS 1 /lpf (0-8); PH,URINE 6.5 (5.0-8.0); URINE APPEARANCE CLEAR; URINE BACTERIA 66.2 /hpf (NEGATIVE); URINE BILIRUBIN NEGATIVE (NEGATIVE); URINE COLOR YELLOW; URINE GLUCOSE (UA) NEGATIVE (NEGATIVE); URINE KETONE NEGATIVE (NEGATIVE); URINE LEUK ESTERASE TRACE (NEGATIVE); URINE NITRITE NEGATIVE (NEGATIVE); URINE PROTEIN NEGATIVE (NEGATIVE); URINE RBC 1 /hpf (0-4); URINE UROBILINOGEN 0.2 mg/dL (0.2-1.0); URINE WBC 6 /hpf (0-5)
[2019-05-14] MEDS ORDERED: ENALAPRILAT DIHYDRATE 2.5 MG/2 ML VIAL IVPB ONE (20:54)
[2019-05-14] MEDS ORDERED: ENALAPRILAT DIHYDRATE 1.25 MG/1 ML VIAL IVPUSH ONE (21:00)
[2019-05-14 21:12] LABS: ANISOCYTOSIS 2+; PLATELET ESTIMATE NORMAL
[2019-05-14] MEDS ORDERED: ACETAMINOPHEN 325 MG TABLET (FP) PO ONE (21:32)
[2019-05-14 21:48] LABS: ALBUMIN 3.9 g/dl (3.4-5.0); BILIRUBIN,TOTAL 0.3 mg/dL (0.2-1); BLOOD UREA NITROGEN 19.3 mg/dL (7-18); CALCIUM 8.9 mg/dL (8.5-10.1); POTASSIUM 4.1 mmol/L (3.5-5.1); TOT PROT 7.5 g/dl (6.4-8.2)
--- NOTE | 2019-05-14 22:37 | PDOC ---
History of Present Illness - General Chief Complaint: Blood Pressure Problem Stated Complaint: HIGH BP Time Seen by Provider: 05/14/19 20:04 History Source: Patient Exam Limitations: No Limitations - History of Present Illness Initial Comments: Pt is a 58 yo F, with PMH of HTN, NIDDM, kidney CA (L nephrectomy done 2015, no chemo or radiation), and hyperthyroidism, who presents with elevated BP, frontal headache, generalized fatigue, and lightheadedness over the past 2 weeks. Pt states her BP has been higher than usual, despite taking her lisinopril (20 mg PO qday) "most days". Pt states her BP today was 226/178, prompting her visit to the ER. Pt denies any fevers/chills, vision changes, syncope, chest pain, palpitations, SOB, nausea/vomiting, abdominal pain, urinary symptoms, diarrhea/constipation, or leg swelling. Allergies: NKDA PCP: [facility] Social: Pt denies any cigarette, alcohol, or drug use. Pt denies any recent travel or sick contacts. Surgical: total L nephrectomy (2015) Family: Mother - CVA 50's. Sister - CVA 40's. 05/14/19 22:34 05/15/19 00:38 Past History - Travel Traveled outside of the country in the last 30 days: No Close contact w/someone who was outside of country & ill: No - Past Medical History Allergies/Adverse Reactions: Allergies Allergy/AdvReac Type Severity Reaction Status Date / Time NSAIDS (Non-Steroidal Allergy Severe tachycardia Verified 05/14/19 20:06 Anti-Inflamma IV contrast Allergy Uncoded 05/14/19 20:06 Home Medications: Ambulatory Orders Lisinopril [Prinivil] 20 mg PO DAILY 03/04/17 Methimazole [Tapazole -] 10 mg PO DAILY 03/04/17 metFORMIN HCL [Metformin ER Osmotic] 500 mg PO DAILY 03/04/17 Cephalexin [Keflex] 500 mg PO Q6H #28 capsule 03/26/17 Cancer: Yes (kidney) COPD: No Diabetes: Yes HTN: Yes Seizures: Yes - Immunization History Immunization Up to Date: Yes - Psycho Social/Smoking Cessation Hx Smoking History: Never smoked Have you smoked in the past 12 months: No Hx Alcohol Use: No Drug/Substance Use Hx: No Substance Use Type: None Cardiac Specific PMH - Complaint Specific PMHX Abdominal Aortic Aneurysm: No Angina: No Cardiac Arrhythmia: No Cardiac Stent: No GERD: No Myocardial Infarction: No Pacemaker: No Pulmonary Embolus: No Valvular Heart Disease: No Peripheral Vascular Disease: No Review of Systems - Review of Systems Able to Perform ROS?: Yes Is the patient limited Italian proficient: No Constitutional: Yes: Malaise, Weakness. No: Chills, Diaphoresis, Fever, Loss of Appetite, Weight Stable HEENTM: No: Blurred Vision, Recent change in vision, Nose Congestion, Throat Pain, Throat Swelling, Difficulty Swallowing Respiratory: No: Cough, Orthopnea, Shortness of Breath Cardiac (ROS): No: Chest Pain, Edema, Irregular Heart Rate, Lightheadedness, Palpitations, Syncope, Chest Tightness ABD/GI: No: Constipated, Diarrhea, Nausea, Poor Appetite, Poor Fluid Intake, Vomiting : No: Burning, Dysuria, Frequency, Flank Pain, Pain, Urgency Musculoskeletal: No: Back Pain, Joint Pain, Muscle Pain, Muscle Weakness, Neck Pain Integumentary: No: Rash Neurological: Yes: Headache, Unsteady Gait. No: Numbness, Paresthesia, Weakness , Ataxia, Dizziness Psychiatric: No: Sleep Pattern Change, Change in Appetite Endocrine: No: Increased Urine, Change in Weight Hematologic/Lymphatic: No: Anemia, Blood Clots, Easy Bleeding, Easy Bruising All Other Systems: Reviewed and Negative *Physical Exam - Vital Signs Last Vital Signs Temp Pulse Resp BP Pulse Ox 98.0 F 68 18 142/78 99 05/14/19 20:03 05/14/19 21:30 05/14/19 21:30 05/14/19 21:30 05/15/19 00:36 - Physical Exam Comments: HTN (186/95), pt afebrile. Pt in NAD, unsteady on her feet but able to ambulate into the ER. Obese body habitus. Pt alert and oriented x3. commuter pilot generally intact, muscular strength and sensation intact. Cerebellar exam WNL. No midline spinal tenderness, step-offs, or crepitus. Head normocephalic, atraumatic. Eyes PERRLA, EOMI. Oropharynx without erythema or exudates, no LAD b/l. No nasal congestion. Hearing intact. Clear heart sounds, S1/S2, no JVD, b/l pedal edema, or heart murmur. Clear lung sounds, no respiratory distress, wheezes, crackles, or accessory muscle use. No abdominal or CVA tenderness to palpation, no rebound, no guarding. Abdomen soft, non-distended, and with normoactive bowel sounds. Skin without jaundice or rash. 05/15/19 01:02 ED Treatment Course - LABORATORY CBC & Chemistry Diagram: 05/14/19 20:28 05/14/19 20:28 - ADDITIONAL ORDERS Additional order review: Laboratory Results 05/14/19 05/14/19 05/14/19 20:30 20:28 20:28 Sodium 139 Potassium 4.1 Chloride 106 Carbon Dioxide 27 Anion Gap 6 L BUN 19.3 H Creatinine 1.0 Est GFR (CKD-EPI)AfAm 70.91 Est GFR (CKD-EPI)NonAf 61.19 Random Glucose 96 Calcium 8.9 Total Bilirubin 0.3 AST 29 ALT 50 Alkaline Phosphatase 167 H Creatine Kinase 78 Troponin I < 0.02 Total Protein 7.5 Albumin 3.9 TSH 2.88 Urine Color Yellow Urine Appearance Clear Urine pH 6.5 D Ur Specific [place] 1.007 L Urine Protein Negative Urine Glucose (UA) Negative Urine Ketones Negative Urine Blood Negative Urine Nitrite Negative Urine Bilirubin Negative Urine Urobilinogen 0.2 Ur Leukocyte Esterase Trace Urine WBC (Auto) 6 Urine RBC (Auto) 1 Urine Casts (Auto) 1 U Epithel Cells (Auto) 3.0 Urine Bacteria (Auto) 66.2 05/14/19 20:28 RBC 4.43 MCV 83.7 MCHC 33.2 RDW 24.3 H MPV 8.0 Neutrophils % 58.9 Lymphocytes % 31.4 D Monocytes % 6.1 Eosinophils % 2.6 D Basophils % 1.0 D - Medications Given in the ED: ED Medications Discontinued Medications Generic Name Dose Route Start Last Admin Trade Name Freq PRN Reason Stop Dose Admin Acetaminophen 650 mg 05/14/19 21:32 05/14/19 22:55 Tylenol - PO 05/14/19 21:33 650 mg ONCE ONE Administration Enalaprilat 1.25 mg 05/14/19 21:00 05/14/19 21:00 Vasotec Injection - IVPUSH 05/14/19 21:01 1.25 mg ONCE ONE Administration Medical Decision Making - Medical Decision Making Pt was seen at bedside, also will be seen by attending Dr. Desai. Pt presenting with headache, generalized weakness, uncontrolled BP likely 2/2 hypertensive emergency. Will evaluate for electrolyte imbalances, arrhythmia, ACS, CVA. Provided 1.25 mg IV elanipril for improvement of hypertension. Will continue to reassess pt and monitor for symptomatic improvement. ECG: NSR, intervals WNL (HR 70, MA 160, QRS 78, QTc 427). TWI in III, with no significant ST segment changes. No significant changes from prior ECG (02/2017). 05/15/19 01:03 CBC and CMP WNL Trop <.[address] without acute pathology. BP improved after enalipril, but pt remained symptomatic with weakness and light -headedness. Pt with difficulty ambulatory in the ED even with BP control. Pt requires inpatient admission for continued BP monitoring and potential MRI to eval for CVA. Pt admitted to hospitalist team (Dr. Santana) WAQAS REMY [phone] 05/15/19 01:05 Discharge - Discharge Information Problems reviewed: Yes Clinical Impression/Diagnosis: Hypertensive crisis Condition: Stable - Admission Yes - Follow up/Referral - Patient Discharge Instructions - Post Discharge Activity NIH Stroke Scale - Last Known Well Date/Time & Onset Date Last Known Well: 04/30/19 Time Last Known Well: 12:00 - Initial Evaluation Level of consciousness: Alert Ask patient the month and their age: Answers both correctly Ask patient to open & close eyes; make fist and let go: Obeys both correctly Best gaze (horizontal eye movement): Normal Visual field testing: No visual field loss Facial paresis (Show teeth/raise eyebrows/close eyes tight): Normal symmetrical movement Motor Function: Left Arm: Normal Motor Function: Right Arm: Normal (extends arm 90 (or 45) degrees for 10 seconds without drift Motor Function: Left Leg: Normal (extends leg 30 degrees for 5 seconds without drift) Motor Function: Right Leg: Normal (extends leg 30 degrees for 5 seconds without drift) Limb Ataxia: No ataxia Sensory(Use pinprick test arms,legs,trunk,face/side to side): Normal Best language (Describe picture, name items, read sentences): No Aphasia Dysarthria (read several words): Normal articulation Extinction and Inattention: No abnormality - Total Score NIH Stroke Scale Score: 0
[2019-05-14] MEDS ORDERED: ACETAMINOPHEN 325 MG TABLET (FP) ONE (22:43)
--- NOTE | 2019-05-14 23:45 | PN ---
Teaching Attending Note Name of Resident: Ernestine aKplan ATTENDING PHYSICIAN STATEMENT I saw and evaluated the patient. I reviewed the resident's note and discussed the case with the resident. I agree with the resident's findings and plan as documented. SUBJECTIVE: Patient is a 58 year old woman with PMH of HTN, NIDDM, Kidney cancer (L nephrectomy done 2016, no chemo or radiation), and Hyperthyroidism, who presents with elevated BP, frontal headache, generalized fatigue, and lightheadedness over the past 2 weeks. Patient states her BP has been higher than usual, despite taking her lisinopril (20 mg PO qd) "most days". Patient states her BP today was 226/178, prompting her visit to the ER. Patient denies any fevers/chills, vision changes, syncope, chest pain, palpitations, SOB, nausea/vomiting, abdominal pain, urinary symptoms, diarrhea/constipation, or leg swelling. She denies tobacco, alcohol, or illicit drug use. Patient denies any recent travel or sick contacts. Has FH of HTN, CVA (Mother - CVA 50's. Sister - CVA 40's). OBJECTIVE: Alert Vital Signs Period Temp Pulse Resp BP Sys/Vazquez Pulse Ox Last 24 Hr 98.0 F 65-88 18-18 142-187/78-95 98-99 HEENT: No Jaundice, eye redness or discharge, PERRLA, EOMI. Normocephalic, atraumatic. External ears are normal and hearing is grossly intact. No nasal discharge. Neck: Supple, nontender. No palpable adenopathy or thyromegaly. No JVD Chest: Good effort. Clear to auscultation and percussion. Heart: Regular. No S3, rub or murmur Abdomen: Not distended, soft, nontender and no HSM. No rebound or guarding. Normal bowel sounds. Ext: Peripheral pulses intact. No leg edema. Skin: Warm and dry. No petechiae, rash or ecchymosis. Neuro: Alert. Oriented x3. CN 2-12 grossly intact. Sensation grossly intact in all four extremities and DTR are symmetric. Psych: Appropriate mood and affect. Good insight. Current Medications Generic Name Dose Route Start Last Admin Trade Name Freq PRN Reason Stop Dose Admin Enoxaparin Sodium 40 mg 05/15/19 10:00 Lovenox - SQ DAILY [facility] Insulin Aspart 1 vial 05/15/19 07:00 Novolog Vial Sliding Scale - SQ ACHS [facility] Protocol Home Medications Medication Instructions Recorded Lisinopril [Prinivil] 20 mg PO DAILY 03/04/17 Methimazole [Tapazole -] 10 mg PO DAILY 03/04/17 metFORMIN HCL [Metformin ER 500 mg PO DAILY 03/04/17 Osmotic] Cephalexin [Keflex] 500 mg PO Q6H #28 capsule 03/26/17 Abnormal Lab Results 05/14/19 05/14/19 05/14/19 20:28 20:28 20:30 RDW 24.3 H Anion Gap 6 L BUN 19.3 H Alkaline Phosphatase 167 H Ur Specific [place] 1.007 L ASSESSMENT AND PLAN: 1. Hypertensive Urgency - BP improved to 142/78 after IV Enalapril in the ER. Noncontrast head CT and CXR do not show any acute abnormality. EKG shows NSR with T wave inversion in III - will repeat. Restart suitable outpatient antihypertensive drugs and add Amlodipine 5 mg qd and HCTZ 12.5 mg qd. Will revise regimen to ensure [id number] excellent BP control and developmental training counselor patient on the injurious effects of uncontrolled hypertension. Nonpharmacologic measures to control hypertension like weight loss, salt restriction and exercise discussed. Importance of adherence to treatment regimen and attainment of normotension emphasized. Will refer for outpatient workup to rule out secondary hypertension. Will continue comprehensive care for all of patients comorbid conditions. 2. DM For now, we will hold the home diabetes drugs and implement sliding scale insulin regimen. Provide comprehensive diabetes care with patient teaching and counseling about the importance of adherence to prescribed diabetes regimen, euglycemia, eye care and foot care. 3. Obesity Counseled on the risks associated with obesity. Will provide patient all the necessary assistance, counseling and positive reinforcement to facilitate weight loss. Consult coin purse assembler. 4. DVT prophylaxis - Lovenox 40 mg SQ q 24 hours. 5. Advance directives - Full code
--- NOTE | 2019-05-15 03:34 | HP ---
CHIEF COMPLAINT: headache PCP: Dr. Pathak HISTORY OF PRESENT ILLNESS: 58 y/o female w PMH of HTN, NIDDM, renal carcinoma (LEFT nephrectomy 2015, no chemo or radiation), and hyperthyroidism c/o headache since this AM. Pt noted frontal headache that evolved to become holocranial with accompanying blurry vision. She took her BP at home and got systolic value in the 180s x2 despite taking usual HTN regimen and this prompted her to come to the ED (186/95 recorded in ED). Additional symptoms include momentary kj-oral numbness, fatigue, and nausea but no vomiting. She denies LOC, syncope, chest pain, palpitations, and SOB. She has had no sick contacts and recent travel. ER course was notable for: (1) BP 186/95 (2) Enalapril 1.25 mg x2 (3) Head CT with NO evidence of intracranial pathology Recent Travel: Denies PAST MEDICAL HISTORY: HTN, NIDDM, renal carcinoma (LEFT nephrectomy 2015, no chemo or radiation), hyperthyroidism PAST SURGICAL HISTORY: LEFT nephrectomy (2015), hysterectomy (1983) Social History: Smoking: Denies Alcohol: Denies Drugs: Denies Allergies: NSAIDS (Non-Steroidal Anti-Inflamma Allergy (Severe, Verified 20:06) tachycardia. IV contrast Allergy (Uncoded 05/14/19 20:06) HOME MEDICATIONS: Medication Instructions Recorded Lisinopril [Prinivil] 20 mg PO DAILY 03/04/17 Methimazole [Tapazole -] 10 mg PO DAILY 03/04/17 metFORMIN HCL [Metformin ER 500 mg PO DAILY 03/04/17 Osmotic] Cephalexin [Keflex] 500 mg PO Q6H #28 capsule 03/26/17 REVIEW OF SYSTEMS CONSTITUTIONAL: Absent: fever, chills, diaphoresis, generalized weakness, malaise, loss of appetite, weight change HEENT: Absent: rhinorrhea, nasal congestion, throat pain, throat swelling, difficulty swallowing, mouth swelling, ear pain, eye pain, visual changes CARDIOVASCULAR: Absent: chest pain, syncope, palpitations, irregular heart rate, lightheadedness , peripheral edema RESPIRATORY: Absent: cough, shortness of breath, dyspnea with exertion, orthopnea, wheezing, stridor, hemoptysis GASTROINTESTINAL: Absent: abdominal pain, abdominal distension, nausea, vomiting, diarrhea, constipation, melena, hematochezia GENITOURINARY: Absent: dysuria, frequency, urgency, hesitancy, hematuria, flank pain, genital pain MUSCULOSKELETAL: Absent: myalgia, arthralgia, joint swelling, back pain, neck pain SKIN: Absent: rash, itching, pallor HEMATOLOGIC/IMMUNOLOGIC: Absent: easy bleeding, easy bruising, lymphadenopathy, frequent infections ENDOCRINE: Absent: unexplained weight gain, unexplained weight loss, heat intolerance, cold intolerance NEUROLOGIC: Absent: headache, focal weakness or paresthesias, dizziness, unsteady gait, seizure, mental status changes, bladder or bowel incontinence PSYCHIATRIC: Absent: anxiety, depression, suicidal or homicidal ideation, hallucinations. PHYSICAL EXAMINATION Vital Signs - 24 hr 05/14/19 05/14/19 05/14/19 20:03 20:51 21:05 Temperature 98.0 F Pulse Rate 88 Pulse Rate [ 65 67 Radial] Respiratory 18 18 18 Rate Blood Pressure 186/95 H Blood Pressure 187/95 H 167/78 [Left Arm] O2 Sat by Pulse 98 99 99 Oximetry (%) 05/14/19 05/15/19 21:30 00:36 Temperature Pulse Rate Pulse Rate [ 68 Radial] Respiratory 18 Rate Blood Pressure Blood Pressure 142/78 [Left Arm] O2 Sat by Pulse 98 99 Oximetry (%) GENERAL: AOx3, in no acute distress. HEAD: NCAT EYES: JUAN, EOMI, conjunctiva clear. Opthamoscopic exam WNL. ENT: Ears normal, nares patent, oropharynx clear without exudates. Moist mucous membranes. NECK: Normal range of motion, supple without lymphadenopathy, JVD, or masses. LUNGS: CTAB. No wheezes, and no crackles. No accessory muscle use. HEART: RRR s1 s2 ABDOMEN: Soft, BS present in all 4 quadrants, non-distended, no JVD, MUSCULOSKELETAL: No bony deformities or tenderness. No CVA tenderness. UPPER EXTREMITIES: 2+ pulses, warm, well-perfused. No cyanosis. No clubbing. No peripheral edema. LOWER EXTREMITIES: 2+ pulses, warm, well-perfused. No calf tenderness. No peripheral edema. NEUROLOGICAL: Cranial nerves II-XII intact. Normal speech. Gait not appreciated. PSYCHIATRIC: Cooperative. Good eye contact. Appropriate mood and affect. SKIN: Warm, dry, normal turgor, no rashes or lesions noted, normal capillary refill. Laboratory Results - last 24 hr 05/14/19 05/14/19 05/14/19 20:28 20:28 20:28 WBC 9.1 RBC 4.43 Hgb 12.3 Hct 37.1 D MCV 83.7 MCH 27.8 D MCHC 33.2 RDW 24.3 H Plt Count 253 MPV 8.0 Absolute Neuts (auto) 5.4 Neutrophils % 58.9 Lymphocytes % 31.4 D Monocytes % 6.1 Eosinophils % 2.6 D Basophils % 1.0 D Nucleated RBC % 0 Platelet Estimate Normal Anisocytosis 2+ Sodium 139 Potassium 4.1 Chloride 106 Carbon Dioxide 27 Anion Gap 6 L BUN 19.3 H Creatinine 1.0 Est GFR (CKD-EPI)AfAm 70.91 Est GFR (CKD-EPI)NonAf 61.19 POC Glucometer Random Glucose 96 Calcium 8.9 Total Bilirubin 0.3 AST 29 ALT 50 Alkaline Phosphatase 167 H Creatine Kinase 78 Troponin I < 0.02 Total Protein 7.5 Albumin 3.9 TSH 2.88 Urine Color Urine Appearance Urine pH Ur Specific [place] Urine Protein Urine Glucose (UA) Urine Ketones Urine Blood Urine Nitrite Urine Bilirubin Urine Urobilinogen Ur Leukocyte Esterase Urine WBC (Auto) Urine RBC (Auto) Urine Casts (Auto) U Epithel Cells (Auto) Urine Bacteria (Auto) 05/14/19 05/15/19 20:30 02:12 WBC RBC Hgb Hct MCV MCH MCHC RDW Plt Count MPV Absolute Neuts (auto) Neutrophils % Lymphocytes % Monocytes % Eosinophils % Basophils % Nucleated RBC % Platelet Estimate Anisocytosis Sodium Potassium Chloride Carbon Dioxide Anion Gap BUN Creatinine Est GFR (CKD-EPI)AfAm Est GFR (CKD-EPI)NonAf POC Glucometer 107 Random Glucose Calcium Total Bilirubin AST ALT Alkaline Phosphatase Creatine Kinase Troponin I Total Protein Albumin TSH Urine Color Yellow Urine Appearance Clear Urine pH 6.5 D Ur Specific [place] 1.007 L Urine Protein Negative Urine Glucose (UA) Negative Urine Ketones Negative Urine Blood Negative Urine Nitrite Negative Urine Bilirubin Negative Urine Urobilinogen 0.2 Ur Leukocyte Esterase Trace Urine WBC (Auto) 6 Urine RBC (Auto) 1 Urine Casts (Auto) 1 U Epithel Cells (Auto) 3.0 Urine Bacteria (Auto) 66.2 ASSESSMENT/PLAN: 58 y/o female w PMH of HTN, NIDDM, renal carcinoma (LEFT nephrectomy 2015, no chemo or radiation), and hyperthyroidism c/o headache since this AM and elevated BP. Symptom resolution in ED. NEGATIVE head CT. # Hypertensive urgency - Repeat EKG 2/2 T wave inversion in III - HCTZ 12.5 mg QD in AM - Amlodipine 5 mg QD in PM # DM - ISS - Diabetic diet #F/E/N - NS - Cont. to monitor - Diabetic, low sodium diet # DVT prophylaxis - Lovenox 40 mg SQ q 24 hours # Disposition - Admit to med/surg [facility] Jane MD Visit type - Emergency Visit Emergency Visit: Yes ED Registration Date: 05/14/19 Care time: The patient presented to the Emergency Department on the above date and was hospitalized for further evaluation of their emergent condition. - New Patient This patient is new to me today: Yes Date on this admission: 05/15/19 - Critical Care Critical Care patient: No ATTENDING PHYSICIAN STATEMENT I saw and evaluated the patient. I reviewed the resident's note and discussed the case with the resident. I agree with the resident's findings and plan as documented. SUBJECTIVE: OBJECTIVE: ASSESSMENT AND PLAN:
[2019-05-15 06:08] LABS: BASO % 0.8 % (0-2.0); EOS % 3.4 % (0-4.5); HEMATOCRIT 35.3 % (32.4-45.2); HEMOGLOBIN 11.7 GM/dL (10.7-15.3); MCH 27.4 pg (25.7-33.7); MCHC 33.1 g/dl (32.0-36.0); MEAN CELL VOLUME 82.7 fl (80-96); MEAN PLT VOLUME 7.9 fl (7.5-11.1); MONO % 5.9 % (3.8-10.2); NEUT % 57.9 % (42.8-82.8); PLATELET COUNT 223 K/MM3 (134-434); RBC 4.27 M/mm3 (3.60-5.2); RDW 24.5 % (11.6-15.6); WHITE BLOOD COUNT 6.5 K/mm3 (4.0-10.0)
[2019-05-15 06:37] LABS: BLOOD UREA NITROGEN 16.1 mg/dL (7-18); CALCIUM 9.1 mg/dL (8.5-10.1); POTASSIUM 4.1 mmol/L (3.5-5.1)
[2019-05-15] MEDS ORDERED: INSULIN SLIDING SCALE (NOVOLOG) 1 VIAL SQ SCH (07:00)
--- NOTE | 2019-05-15 08:26 | PN ---
Teaching Attending Note Name of Resident: Karma Chen ATTENDING PHYSICIAN STATEMENT I saw and evaluated the patient. I reviewed the resident's note and discussed the case with the resident. I agree with the resident's findings and plan as documented. SUBJECTIVE: Patient is comfortable, no further headache or dizziness. Daughter at bedside. OBJECTIVE: Vital Signs Temperature 98.0 F 05/14/19 20:03 Pulse Rate 61 05/15/19 06:33 Respiratory Rate 18 05/15/19 06:33 Blood Pressure 149/68 05/15/19 06:33 O2 Sat by Pulse Oximetry (%) 98 05/15/19 06:33 GENERAL: The patient is awake, alert, and fully oriented, in no acute distress. HEAD: Normal with no signs of trauma. EYES: PERRL, extraocular movements intact, sclera anicteric, conjunctiva clear. ENT: Ears normal, oropharynx clear without exudates, moist mucous membranes. NECK: Trachea midline, full range of motion, supple. LUNGS: Breath sounds equal, clear to auscultation bilaterally, no wheezes, no crackles, no accessory muscle use. HEART: Regular rate and rhythm, S1, S2 without murmur, rub or gallop. ABDOMEN: Soft, Nt,ND, normoactive bowel sounds, no guarding, no rebound, no hepatosplenomegaly, no masses. EXTREMITIES: 2+ pulses, warm, well-perfused, no edema. NEUROLOGICAL: Cranial nerves II through XII grossly intact. Normal speech, gait not observed. PSYCH: Normal mood, normal affect. SKIN: Warm, dry, normal turgor, no rashes or lesions noted CBCD WBC 6.5 K/mm3 (4.0-10.0) 05/15/19 05:45 RBC 4.27 M/mm3 (3.60-5.2) 05/15/19 05:45 Hgb 11.7 GM/dL (10.7-15.3) 05/15/19 05:45 Hct 35.3 % (32.4-45.2) 05/15/19 05:45 MCV 82.7 fl (80-96) 05/15/19 05:45 MCHC 33.1 g/dl (32.0-36.0) 05/15/19 05:45 RDW 24.5 % (11.6-15.6) H 05/15/19 05:45 Plt Count 223 K/MM3 (134-434) 05/15/19 05:45 MPV 7.9 fl (7.5-11.1) 05/15/19 05:45 CMP Sodium 139 mmol/L (136-145) 05/15/19 05:45 Potassium 4.1 mmol/L (3.5-5.1) 05/15/19 05:45 Chloride 108 mmol/L (98-107) H 05/15/19 05:45 Carbon Dioxide 29 mmol/L (21-32) 05/15/19 05:45 Anion Gap 3 MMOL/L (8-16) L 05/15/19 05:45 BUN 16.1 mg/dL (7-18) 05/15/19 05:45 Creatinine 1.0 mg/dL (0.55-1.3) 05/15/19 05:45 Random Glucose 107 mg/dL (74-106) H 05/15/19 05:45 Calcium 9.1 mg/dL (8.5-10.1) 05/15/19 05:45 Total Bilirubin 0.3 mg/dL (0.2-1) 05/14/19 20:28 AST 29 U/L (15-37) 05/14/19 20:28 ALT 50 U/L (13-61) 05/14/19 20:28 Alkaline Phosphatase 167 U/L (45-117) H 05/14/19 20:28 Total Protein 7.5 g/dl (6.4-8.2) 05/14/19 20:28 Albumin 3.9 g/dl (3.4-5.0) 05/14/19 20:28 CARDIAC ENZYMES Creatine Kinase 78 U/L (26-192) 05/14/19 20:28 Troponin I < 0.02 ng/ml (0.00-0.05) 05/14/19 20:28 Current Medications Generic Name Dose Route Start Last Admin Trade Name Freq PRN Reason Stop Dose Admin Amlodipine Besylate 5 mg 05/15/19 22:00 Norvasc - PO HS [facility] Enoxaparin Sodium 40 mg 05/15/19 10:00 Lovenox - SQ DAILY [facility] Hydrochlorothiazide 12.5 mg 05/15/19 10:00 Hctz - PO DAILY [facility] Insulin Aspart 1 vial 05/15/19 07:00 05/15/19 07:05 Novolog Vial Sliding Scale - SQ Not Given ACHS [facility] Protocol Lisinopril 20 mg 05/15/19 10:00 Prinivil PO DAILY [facility] Methimazole 10 mg 05/15/19 10:00 Tapazole - PO DAILY [facility] Home Medications Medication Instructions Recorded Lisinopril [Prinivil] 20 mg PO DAILY 03/04/17 Methimazole [Tapazole -] 10 mg PO DAILY 03/04/17 metFORMIN HCL [Metformin ER 500 mg PO DAILY 03/04/17 Osmotic] Cephalexin [Keflex] 500 mg PO Q6H #28 capsule 03/26/[address]: negative EKG: NSR, rate of 70s ASSESSMENT AND PLAN: Patient is a 58yo female with PMHx of HTN, NIDDM, RCC (LEFT nephrectomy 2015), and hyperthyroidism presented to the ED. c/o having headache and was found out to have elevated BP. # Hypertensive urgency: improved will add Norvasc 10mg po daily , presented with 186/95-->149/68 now, will refer her to the resident's clinic for This Sunday for follow up visit. # DM: continue home metformin, Diabetic diet. # Hx of Hyperthyroidism continue home methimazole DVT prophylaxis: Lovenox 40 mg SQ q 24 hours dc patient home
[2019-05-15] MEDS ORDERED: ACETAMINOPHEN 325 MG TABLET (FP) PO PRN (09:30)
[2019-05-15] MEDS ORDERED: ACETAMINOPHEN 325 MG TABLET (FP) ONE (09:35)
--- NOTE | 2019-05-15 09:35 | PN ---
Physical Exam: SUBJECTIVE: Patient seen and examined. She denies current headache, chest pain, abdominal pain, nausea, or vomiting. No other complaints reported. She reports medication compliance. OBJECTIVE: Vital Signs Period Temp Pulse Resp BP Sys/Vazquez Pulse Ox Last 24 Hr 98.0 F 61-88 16-18 142-187/68-95 98-99 GENERAL: The patient is awake, alert, and fully oriented, in no acute distress. Mainly Korean-speaking. HEAD: Normal with no signs of trauma. EYES: PERRL, extraocular movements intact, conjunctiva clear. ENT: Ears normal, nares patent, moist mucous membranes. NECK: Trachea midline, full range of motion, supple. LUNGS: Clear to auscultation bilaterally, no wheezes. HEART: Regular rate and rhythm, S1, S2 without murmur, rub or gallop. ABDOMEN: Soft, obese, nontender, normoactive bowel sounds. EXTREMITIES: Warm, well-perfused, no edema. NEUROLOGICAL: Cranial nerves II through XII grossly intact. Normal speech. PSYCH: Normal mood, normal affect. SKIN: Warm, dry, normal turgor. Laboratory Results - last 24 hr 05/14/19 05/14/19 05/14/19 20:28 20:28 20:28 WBC 9.1 RBC 4.43 Hgb 12.3 Hct 37.1 D MCV 83.7 MCH 27.8 D MCHC 33.2 RDW 24.3 H Plt Count 253 MPV 8.0 Absolute Neuts (auto) 5.4 Neutrophils % 58.9 Lymphocytes % 31.4 D Monocytes % 6.1 Eosinophils % 2.6 D Basophils % 1.0 D Nucleated RBC % 0 Platelet Estimate Normal Anisocytosis 2+ Sodium 139 Potassium 4.1 Chloride 106 Carbon Dioxide 27 Anion Gap 6 L BUN 19.3 H Creatinine 1.0 Est GFR (CKD-EPI)AfAm 70.91 Est GFR (CKD-EPI)NonAf 61.19 POC Glucometer Random Glucose 96 Calcium 8.9 Magnesium Total Bilirubin 0.3 AST 29 ALT 50 Alkaline Phosphatase 167 H Creatine Kinase 78 Troponin I < 0.02 Total Protein 7.5 Albumin 3.9 TSH 2.88 Urine Color Urine Appearance Urine pH Ur Specific [place] Urine Protein Urine Glucose (UA) Urine Ketones Urine Blood Urine Nitrite Urine Bilirubin Urine Urobilinogen Ur Leukocyte Esterase Urine WBC (Auto) Urine RBC (Auto) Urine Casts (Auto) U Epithel Cells (Auto) Urine Bacteria (Auto) 05/14/19 05/15/19 05/15/19 20:30 02:12 05:45 WBC 6.5 RBC 4.27 Hgb 11.7 Hct 35.3 MCV 82.7 MCH 27.4 MCHC 33.1 RDW 24.5 H Plt Count 223 MPV 7.9 Absolute Neuts (auto) 3.7 Neutrophils % 57.9 Lymphocytes % 32.0 Monocytes % 5.9 Eosinophils % 3.4 Basophils % 0.8 Nucleated RBC % 0 Platelet Estimate Anisocytosis Sodium Potassium Chloride Carbon Dioxide Anion Gap BUN Creatinine Est GFR (CKD-EPI)AfAm Est GFR (CKD-EPI)NonAf POC Glucometer 107 Random Glucose Calcium Magnesium Total Bilirubin AST ALT Alkaline Phosphatase Creatine Kinase Troponin I Total Protein Albumin TSH Urine Color Yellow Urine Appearance Clear Urine pH 6.5 D Ur Specific [place] 1.007 L Urine Protein Negative Urine Glucose (UA) Negative Urine Ketones Negative Urine Blood Negative Urine Nitrite Negative Urine Bilirubin Negative Urine Urobilinogen 0.2 Ur Leukocyte Esterase Trace Urine WBC (Auto) 6 Urine RBC (Auto) 1 Urine Casts (Auto) 1 U Epithel Cells (Auto) 3.0 Urine Bacteria (Auto) 66.2 05/15/19 05/15/19 05:45 07:03 WBC RBC Hgb Hct MCV MCH MCHC RDW Plt Count MPV Absolute Neuts (auto) Neutrophils % Lymphocytes % Monocytes % Eosinophils % Basophils % Nucleated RBC % Platelet Estimate Anisocytosis Sodium 139 Potassium 4.1 Chloride 108 H Carbon Dioxide 29 Anion Gap 3 L BUN 16.1 Creatinine 1.0 Est GFR (CKD-EPI)AfAm 70.91 Est GFR (CKD-EPI)NonAf 61.19 POC Glucometer 101 Random Glucose 107 H Calcium 9.1 Magnesium 2.0 Total Bilirubin AST ALT Alkaline Phosphatase Creatine Kinase Troponin I Total Protein Albumin TSH 2.96 Urine Color Urine Appearance Urine pH Ur Specific [place] Urine Protein Urine Glucose (UA) Urine Ketones Urine Blood Urine Nitrite Urine Bilirubin Urine Urobilinogen Ur Leukocyte Esterase Urine WBC (Auto) Urine RBC (Auto) Urine Casts (Auto) U Epithel Cells (Auto) Urine Bacteria (Auto) Active Medications Generic Name Dose Route Start Last Admin Trade Name Freq PRN Reason Stop Dose Admin Acetaminophen 650 mg 05/15/19 09:30 Tylenol - PO Q6H PRN Fever Or Pain Amlodipine Besylate 5 mg 05/15/19 22:00 Norvasc - PO HS [facility] Enoxaparin Sodium 40 mg 05/15/19 10:00 Lovenox - SQ DAILY [facility] Hydrochlorothiazide 12.5 mg 05/15/19 10:00 Hctz - PO DAILY [facility] Insulin Aspart 1 vial 05/15/19 07:00 05/15/19 07:05 Novolog Vial Sliding Scale - SQ Not Given ACHS [facility] Protocol Lisinopril 20 mg 05/15/19 10:00 Prinivil PO DAILY [facility] Methimazole 10 mg 05/15/19 10:00 Tapazole - PO DAILY [facility] Pneumococcal Polyvalent Vaccine 0.5 ml 05/15/19 10:00 Pneumovax - IM 05/15/19 10:01 .ONCE ONE ASSESSMENT/PLAN: Ms. To Brice is a 58y/o female with HTN, NIDDM, renal carcinoma ( left nephrectomy 2015, no chemo or radiation), and hyperthyroidism who presents with headache and hypertension. Symptoms and pressures improved in the ED following Vasotec. Pt is being monitored for hypertensive urgency. #hypertensive urgency Head CT negative for acute processes. Trop negative. Cr 1.0. -resume home meds #hyperthyroidism TSH 2.96 -resume methimazole #NIDDM -SSI and BGMs DVT Ppx Lovenox FEN PO fluids monitor labs diabetic/low sodium diet ATTENDING PHYSICIAN STATEMENT I saw and evaluated the patient. I reviewed the resident's note and discussed the case with the resident. I agree with the resident's findings and plan as documented. SUBJECTIVE: OBJECTIVE: ASSESSMENT AND PLAN:
[2019-05-15] MEDS ORDERED: HYDROCHLOROTHIAZIDE 12.5 MG CAPSULE (FP) PO SCH (10:00)
[2019-05-15] MEDS ORDERED: ENOXAPARIN NA (PORCINE) 40 MG/0.4 ML DISP.SYRIN SQ SCH (10:00)
[2019-05-15] MEDS ORDERED: METHIMAZOLE 10 MG TABLET (FP) PO SCH (10:00)
[2019-05-15] MEDS ORDERED: LISINOPRIL 20 MG TABLET (FP) PO SCH (10:00)
[2019-05-15] MEDS ORDERED: PNEUMOCOCCAL 23 VACCINE 0.5 ML VIAL IM ONE (10:00)
[2019-05-15 11:23] VITALS: BP 154/89; PULSE 73
--- NOTE | 2019-05-15 12:38 | EKG ---
Test Reason : Blood Pressure : / mmHG Vent. Rate : 070 BPM Atrial Rate : 070 BPM P-R Int : 160 ms QRS Dur : 078 ms QT Int : 396 ms P-R-T Axes : 024 015 021 degrees QTc Int : 427 ms NORMAL SINUS RHYTHM NORMAL ECG WHEN COMPARED WITH ECG OF 07-MAR-2017 12:22, NO SIGNIFICANT CHANGE WAS FOUND Confirmed by MAURICIO MITCHELL MD ([id number]) on 05/15/2019 12:37:49 PM Referred By: Confirmed By:MAURICIO MITCHELL MD
--- NOTE | 2019-05-15 15:04 | DS ---
Physical Exam: SUBJECTIVE: Patient seen and examined. She denies current headache, chest pain, abdominal pain, nausea, or vomiting. No other complaints reported. She reports medication compliance. OBJECTIVE: Vital Signs Period Temp Pulse Resp BP Sys/Vazquez Pulse Ox Last 24 Hr 98.0 F 61-88 16-18 142-187/68-95 98-99 PHYSICAL EXAM GENERAL: The patient is awake, alert, and fully oriented, in no acute distress. Mainly [place]-speaking. HEAD: Normal with no signs of trauma. EYES: PERRL, extraocular movements intact, conjunctiva clear. ENT: Ears normal, nares patent, moist mucous membranes. NECK: Trachea midline, full range of motion, supple. LUNGS: Clear to auscultation bilaterally, no wheezes. HEART: Regular rate and rhythm, S1, S2 without murmur, rub or gallop. ABDOMEN: Soft, obese, nontender, normoactive bowel sounds. EXTREMITIES: Warm, well-perfused, no edema. NEUROLOGICAL: Cranial nerves II through XII grossly intact. Normal speech. PSYCH: Normal mood, normal affect. SKIN: Warm, dry, normal turgor. LABS Laboratory Results - last 24 hr 05/14/19 05/14/19 05/14/19 20:28 20:28 20:28 WBC 9.1 RBC 4.43 Hgb 12.3 Hct 37.1 D MCV 83.7 MCH 27.8 D MCHC 33.2 RDW 24.3 H Plt Count 253 MPV 8.0 Absolute Neuts (auto) 5.4 Neutrophils % 58.9 Lymphocytes % 31.4 D Monocytes % 6.1 Eosinophils % 2.6 D Basophils % 1.0 D Nucleated RBC % 0 Platelet Estimate Normal Anisocytosis 2+ Sodium 139 Potassium 4.1 Chloride 106 Carbon Dioxide 27 Anion Gap 6 L BUN 19.3 H Creatinine 1.0 Est GFR (CKD-EPI)AfAm 70.91 Est GFR (CKD-EPI)NonAf 61.19 POC Glucometer Random Glucose 96 Calcium 8.9 Magnesium Total Bilirubin 0.3 AST 29 ALT 50 Alkaline Phosphatase 167 H Creatine Kinase 78 Troponin I < 0.02 Total Protein 7.5 Albumin 3.9 TSH 2.88 Urine Color Urine Appearance Urine pH Ur Specific [place] Urine Protein Urine Glucose (UA) Urine Ketones Urine Blood Urine Nitrite Urine Bilirubin Urine Urobilinogen Ur Leukocyte Esterase Urine WBC (Auto) Urine RBC (Auto) Urine Casts (Auto) U Epithel Cells (Auto) Urine Bacteria (Auto) 05/14/19 05/15/19 05/15/19 20:30 02:12 05:45 WBC 6.5 RBC 4.27 Hgb 11.7 Hct 35.3 MCV 82.7 MCH 27.4 MCHC 33.1 RDW 24.5 H Plt Count 223 MPV 7.9 Absolute Neuts (auto) 3.7 Neutrophils % 57.9 Lymphocytes % 32.0 Monocytes % 5.9 Eosinophils % 3.4 Basophils % 0.8 Nucleated RBC % 0 Platelet Estimate Anisocytosis Sodium Potassium Chloride Carbon Dioxide Anion Gap BUN Creatinine Est GFR (CKD-EPI)AfAm Est GFR (CKD-EPI)NonAf POC Glucometer 107 Random Glucose Calcium Magnesium Total Bilirubin AST ALT Alkaline Phosphatase Creatine Kinase Troponin I Total Protein Albumin TSH Urine Color Yellow Urine Appearance Clear Urine pH 6.5 D Ur Specific [place] 1.007 L Urine Protein Negative Urine Glucose (UA) Negative Urine Ketones Negative Urine Blood Negative Urine Nitrite Negative Urine Bilirubin Negative Urine Urobilinogen 0.2 Ur Leukocyte Esterase Trace Urine WBC (Auto) 6 Urine RBC (Auto) 1 Urine Casts (Auto) 1 U Epithel Cells (Auto) 3.0 Urine Bacteria (Auto) 66.2 05/15/19 05/15/19 05:45 07:03 WBC RBC Hgb Hct MCV MCH MCHC RDW Plt Count MPV Absolute Neuts (auto) Neutrophils % Lymphocytes % Monocytes % Eosinophils % Basophils % Nucleated RBC % Platelet Estimate Anisocytosis Sodium 139 Potassium 4.1 Chloride 108 H Carbon Dioxide 29 Anion Gap 3 L BUN 16.1 Creatinine 1.0 Est GFR (CKD-EPI)AfAm 70.91 Est GFR (CKD-EPI)NonAf 61.19 POC Glucometer 101 Random Glucose 107 H Calcium 9.1 Magnesium 2.0 Total Bilirubin AST ALT Alkaline Phosphatase Creatine Kinase Troponin I Total Protein Albumin TSH 2.96 Urine Color Urine Appearance Urine pH Ur Specific [place] Urine Protein Urine Glucose (UA) Urine Ketones Urine Blood Urine Nitrite Urine Bilirubin Urine Urobilinogen Ur Leukocyte Esterase Urine WBC (Auto) Urine RBC (Auto) Urine Casts (Auto) U Epithel Cells (Auto) Urine Bacteria (Auto) HOSPITAL COURSE: Ms. To Brice is a 58y/o female with HTN, NIDDM, renal carcinoma ( left nephrectomy 2015, no chemo or radiation), and hyperthyroidism who presents with headache and hypertension. She reports medication compliance. Pt was treated for hypertensive urgency. Symptoms and pressures improved in the ED following Vasotec. Head CT negative for acute processes. Trop negative. Cr 1.0. Pt is stable for discharge. Date of Admission:05/14/19 Date of Discharge: 05/15/19 Minutes to complete discharge: 35 Discharge Summary Problems reviewed: Yes Reason For Visit: HYPERTENSIVE EMERGENCY Condition: Stable - Instructions Diet, Activity, Other Instructions: You came to the emergency room with complaints of a headache and your blood pressure was found to be elevated. We gave you new medication which lowered your pressure-your symptoms improved and you were stable to be discharged home Please resume all of your medications in addition: Please take the blood pressure medication Amlodipine 10mg daily Please follow up with your primary care physician within a few days We are also referring you to our resident clinic at [address] [place] [address] in [place] for this coming Sunday where you should get your lipid panel drawn. *if you begin to experience worsening chest pains, shortness of breath, headaches, dizziness please return to the emergency room immediately Referrals: Dm Beck MD [Staff Physician] - 1 Week Disposition: HOME - Home Medications Comprehensive Discharge Medication List: Ambulatory Orders Lisinopril [Prinivil] 20 mg PO DAILY 03/04/17 Methimazole [Tapazole -] 10 mg PO DAILY 03/04/17 metFORMIN HCL [Metformin ER Osmotic] 500 mg PO DAILY 03/04/17 Amlodipine Besylate [Norvasc -] 10 mg PO HS #30 tablet 05/15/19 This patient is new to me today: Yes Date on this admission: 05/15/19 Emergency Visit: Yes ED Registration Date: 05/14/19 Care time: The patient presented to the Emergency Department on the above date and was hospitalized for further evaluation of their emergent condition. Critical Care patient: No - Discharge Referral Referred to [facility] Med P.C.: No ATTENDING PHYSICIAN STATEMENT I saw and evaluated the patient. I reviewed the resident's note and discussed the case with the resident. I agree with the resident's findings and plan as documented. SUBJECTIVE: OBJECTIVE: ASSESSMENT AND PLAN:
[2019-05-15] MEDS ORDERED: amLODIPine BESYLATE 5 MG TABLET (FP) PO SCH ×2 (22:00)
== END 2019-05-15 11:33 | disposition home or self-care (01) ==
LOC: JER 20:01 → JERBED 22:41
PROVIDERS: ADMIT Internal Medicine; ATTEND Internal Medicine
PROC: 3E033GC Introduction of Other Therapeutic Substance into Peripheral Vein, Percutaneous Approach (ICD-10-PCS; principal; 2019-05-14)
PROC: 3E013GC Introduction of Other Therapeutic Substance into Subcutaneous Tissue, Percutaneous Approach (ICD-10-PCS; 2019-05-14)
PROC: 3E0234Z Introduction of Serum, Toxoid and Vaccine into Muscle, Percutaneous Approach (ICD-10-PCS; 2019-05-14)
DX: I16.0 Hypertensive urgency (principal); I16.9 Hypertensive crisis, unspecified; I10 Essential (primary) hypertension; E11.9 Type 2 diabetes mellitus without complications; E05.90 Thyrotoxicosis, unspecified without thyrotoxic crisis or storm; E66.9 Obesity, unspecified; Z68.34 Body mass index [BMI] 34.0-34.9, adult; Z85.528 Personal history of other malignant neoplasm of kidney; Z91.041 Radiographic dye allergy status; Z88.6 Allergy status to analgesic agent; Z79.84 Long term (current) use of oral hypoglycemic drugs; Z90.5 Acquired absence of kidney; Z23 Encounter for immunization
CPT/HCPCS: 36415; 70450-TC; 71045-TC-FY; 80048; 80053; 81003; 82550; 82962; 83735; 84443; 84484; 85025; 90471; 90732; 93005; 93010; 96372; 96374; 99285-25; G0009; G0378

== ENCOUNTER 2019-08-15 17:27 | Emergency (ER) | payer OTHER ==
[2019-08-15 17:36] VITALS: TEMP 98.3; BMI 33.0
[2019-08-15] MEDS ORDERED: amLODIPine BESYLATE 5 MG TABLET (FP) PO ONE (18:18)
[2019-08-15] MEDS ORDERED: amLODIPine BESYLATE 5 MG TABLET (FP) ONE (18:58)
[2019-08-15 20:10] LABS: BASO % 0.7 % (0-2.0); EOS % 2.3 % (0-4.5); HEMATOCRIT 35.6 % (32.4-45.2); HEMOGLOBIN 12.1 GM/dL (10.7-15.3); LYMPH % 20.8 % (8-40); MCH 30.8 pg (25.7-33.7); MEAN CELL VOLUME 90.6 fl (80-96); MEAN PLT VOLUME 8.2 fl (7.5-11.1); MONO % 8.4 % (3.8-10.2); NEUT % 67.8 % (42.8-82.8); PLATELET COUNT 236 K/MM3 (134-434); RBC 3.93 M/mm3 (3.60-5.2); RDW 12.9 % (11.6-15.6)
[2019-08-15] MEDS ORDERED: ACETAMINOPHEN 325 MG TABLET (FP) PO ONE (20:23)
[2019-08-15] MEDS ORDERED: LISINOPRIL 20 MG TABLET (FP) PO ONE (20:23)
[2019-08-15] MEDS ORDERED: NITROGLYCERIN SUBLINGUAL 1/150 0.4 MG TAB SL ONE (20:23)
--- NOTE | 2019-08-15 20:29 | PDOC ---
History of Present Illness - General Chief Complaint: Headache Stated Complaint: HEADACHE/HBP Time Seen by Provider: 08/15/19 18:07 History Source: Patient Exam Limitations: No Limitations Past History - Past Medical History Allergies/Adverse Reactions: Allergies Allergy/AdvReac Type Severity Reaction Status Date / Time NSAIDS (Non-Steroidal Allergy Severe tachycardia Verified 08/15/19 17:36 Anti-Inflamma IV contrast Allergy Uncoded 08/15/19 17:36 Home Medications: Ambulatory Orders Lisinopril [Prinivil] 20 mg PO DAILY 03/04/17 Methimazole [Tapazole -] 10 mg PO DAILY 03/04/17 metFORMIN HCL [Metformin ER Osmotic] 500 mg PO DAILY 03/04/17 Amlodipine Besylate [Norvasc -] 10 mg PO HS #30 tablet 05/15/19 Cancer: Yes (kidney) COPD: No Diabetes: Yes HTN: Yes Seizures: Yes - Immunization History Immunization Up to Date: Yes - Psycho Social/Smoking Cessation Hx Smoking History: Never smoked Have you smoked in the past 12 months: No Information on smoking cessation initiated: No Hx Alcohol Use: No Drug/Substance Use Hx: No Substance Use Type: None *Physical Exam - Vital Signs Last Vital Signs Temp Pulse Resp BP Pulse Ox 98.3 F 87 19 172/81 H 100 08/15/19 17:33 08/15/19 17:33 08/15/19 17:33 08/15/19 17:33 08/15/19 17:33 - Physical Exam General Appearance: No: Apparent Distress HEENT: positive: DENYS Respiratory/Chest: positive: Lungs Clear, Normal Breath Sounds. negative: Respiratory Distress Cardiovascular: positive: Regular Rhythm, Regular Rate, S1, S2. negative: Murmur Gastrointestinal/Abdominal: positive: Normal Bowel Sounds, Soft. negative: Tender, Distended, Guarding, Rebound Integumentary: positive: Normal Color Neurologic: positive: plate hanger II-XII NML intact, Fully Oriented, Alert, Normal Mood/ Affect, Motor Strength /5 ED Treatment Course - LABORATORY CBC & Chemistry Diagram: 08/15/19 19:15 08/15/19 19:15 - RADIOLOGY Radiology Studies Ordered: Category Date Time Status HEAD CT WITHOUT CONTRAST [CT] Stat CT Scan 08/15/19 18:17 Completed - Medications Given in the ED: ED Medications Discontinued Medications Generic Name Dose Route Start Last Admin Trade Name Freq PRN Reason Stop Dose Admin Amlodipine Besylate 5 mg 08/15/19 18:18 08/15/19 19:01 Norvasc - PO 08/15/19 18:19 5 mg ONCE ONE Administration Medical Decision Making - Medical Decision Making 58-year-old female history of hypertension, NIDDM, renal cancer status post left nephrectomy in 2016, hypothyroidism presents with concerns of elevated blood pressure for more than a week. Patient states her blood pressure has been fluctuating for quite some time but the past week has been worse. States the highest it was was 190/110. Patient currently takes lisinopril 20 mg twice daily and Norvasc 5 mg daily for her blood pressure. However states she has not taken her Norvasc for 2 weeks because she feels that it causes epigastric burning. Also mentions having headache and feeling slightly lightheaded. Saw her PCP for this right last week but he just told to take her medications. Patient was also admitted to the hospital in April 2020 for hypertensive urgency. Denies shortness of breath, chest pain, abdominal pain, vomiting, visual/gait changes, numbness/tingling/weakness of the extremities. EKG: NSR at 77 bpm, TWI lead III Labs sent and pending CT head is negative Given Norvasc 5 mg but repeat blood pressure still elevated with systolic blood pressure of 199 Patient almost due for her night dose of Lisinopril (takes at 9 PM) D/W Dr. Paul - recommends Lisinopril 20 mg and SL Nitro x1 08/15/19 20:24 Labs reviewed unremarkable Blood pressure much improved after medications Patient advised to follow-up with her PCP for further management of her blood pressure 08/15/19 22:14 Discharge - Discharge Information Problems reviewed: Yes Clinical Impression/Diagnosis: Hypertension Qualifiers: Hypertension type: essential hypertension Qualified Code(s): I10 - Essential ( primary) hypertension Condition: Stable Disposition: HOME - Admission No - Additional Discharge Information Prescription Drug Monitoring Program (I-STOP) results: I-STOP not reviewed - Follow up/Referral - Patient Discharge Instructions Patient Printed Discharge Instructions: Essential Hypertension Additional Instructions: Thank you for choosing [facility]. It was a pleasure taking care of you. Please follow-up with your doctor for further management of your blood pressure Please be sure to take all your blood pressure medications as prescribed Return to the Emergency Department if your symptoms worsen or persist or have other concerning symptoms. - Post Discharge Activity
[2019-08-15 20:35] LABS: ALK PHOS 148 U/L (45-117); ANION GAP 4 MMOL/L (8-16); BILIRUBIN,TOTAL 0.2 mg/dL (0.2-1); BLOOD UREA NITROGEN 21.7 mg/dL (7-18); CALCIUM 8.9 mg/dL (8.5-10.1); CHLORIDE 106 mmol/L (98-107); CO2 29 mmol/L (21-32); CREATININE 1.1 mg/dL (0.55-1.3); GLUCOSE,RANDOM 97 mg/dL (74-106); POTASSIUM 4.2 mmol/L (3.5-5.1); SGOT/AST 20 U/L (15-37); SGPT/ALT 35 U/L (13-61); SODIUM 139 mmol/L (136-145); TOT PROT 7.4 g/dl (6.4-8.2)
[2019-08-15] MEDS ORDERED: ACETAMINOPHEN 325 MG TABLET (FP) ONE (20:55)
[2019-08-15] MEDS ORDERED: NITROGLYCERIN SUBLINGUAL 1/150 0.4 MG TAB ONE (20:55)
[2019-08-15] MEDS ORDERED: LISINOPRIL 20 MG TABLET (FP) ONE (20:55)
[2019-08-15 21:47] VITALS: BP 137/67; PULSE 85
--- NOTE | 2019-08-16 10:33 | EKG ---
Test Reason : Blood Pressure : / mmHG Vent. Rate : 077 BPM Atrial Rate : 077 BPM P-R Int : 176 ms QRS Dur : 076 ms QT Int : 358 ms P-R-T Axes : 019 003 015 degrees QTc Int : 405 ms NORMAL SINUS RHYTHM MINIMAL VOLTAGE CRITERIA FOR LVH, MAY BE NORMAL VARIANT BORDERLINE ECG WHEN COMPARED WITH ECG OF 14-MAY-2019 22:57, NO SIGNIFICANT CHANGE WAS FOUND Confirmed by PAULA SHAIKH, MAURICIO ([id number]) on 08/16/2019 10:33:14 AM Referred By: Confirmed By:MAURICIO MITCHELL MD
== END 2019-08-15 22:26 | disposition home or self-care (01) ==
LOC: JER 17:27
DX: I10 Essential (primary) hypertension (principal); E11.9 Type 2 diabetes mellitus without complications; Z79.84 Long term (current) use of oral hypoglycemic drugs; E03.9 Hypothyroidism, unspecified; Z85.528 Personal history of other malignant neoplasm of kidney; Z90.5 Acquired absence of kidney; Z86.69 Personal history of other diseases of the nervous system and sense organs
CPT/HCPCS: 36415; 70450-TC; 80053; 84484; 85025; 93005; 93010; 99285-25

== ENCOUNTER 2025-04-03 09:19 | Day surgery (SDC) | payer OTHER ==
[~2025-04-03 09:19] MED LIST: FERRIC CARBOXYMALTOSE 750 MG in SODIUM CHLORIDE 250 ML IVPB ONE
[2025-04-03] MEDS: FERRIC CARBOXYMALTOSE 750 MG in SODIUM CHLORIDE 250 ML IVPB ONE (10:12)
[2025-04-03] MEDS: CYANOCOBALAMIN (VITAMIN B-12) 1000 MCG/1 ML VIAL IM ONE (10:12)
[2025-04-03 13:30] VITALS: RESP 20; TEMP 98
[2025-04-03 13:38] VITALS: BP 127/71; PULSE 67
== END 2025-04-03 11:20 | disposition home or self-care (01) ==
LOC: JONCCHEMO 09:19
PROVIDERS: ATTEND Internal Medicine Hematology & Oncology
PROC: 3E033GC Introduction of Other Therapeutic Substance into Peripheral Vein, Percutaneous Approach (ICD-10-PCS; principal; 2025-04-03)
DX: D50.9 Iron deficiency anemia, unspecified (principal)
CPT/HCPCS: J1439

== ENCOUNTER 2025-04-10 09:15 | Day surgery (SDC) | payer OTHER ==
[2025-04-10 09:40] VITALS: RESP 20; TEMP 97.7
[2025-04-10] MEDS: FERRIC CARBOXYMALTOSE 750 MG in SODIUM CHLORIDE 250 ML IVPB ONE (09:58)
[2025-04-10] MEDS: CYANOCOBALAMIN (VITAMIN B-12) 1000 MCG/1 ML VIAL IM ONE (10:30)
[2025-04-10 11:04] VITALS: BP 141/74; PULSE 65
== END 2025-04-10 11:15 | disposition home or self-care (01) ==
LOC: JONCCHEMO 09:15 → J7W 09:17 → JONCCHEMO 11:15
PROVIDERS: ATTEND Internal Medicine Hematology & Oncology
PROC: 3E033GC Introduction of Other Therapeutic Substance into Peripheral Vein, Percutaneous Approach (ICD-10-PCS; principal; 2025-04-10)
DX: D50.9 Iron deficiency anemia, unspecified (principal)
CPT/HCPCS: 96365; J1439